=== PATIENT | female | born 1990 | race Caucasian/White ===

== ENCOUNTER 2022-07-10 07:02 | Day surgery (SDC) | payer SELFPAY ==
[2022-07-10] VITALS (14 sets, daily range): BP systolic 112–125; BP diastolic 42–84; PULSE 75–96; RESP 18–20; TEMP 36.6–36.9; O2SAT 97–100; BMI 24.5
[2022-07-10] MEDS: LACTATED RINGERS 1000 ML 1,000 ML 100 ML IV (07:30)
[2022-07-10 07:43] LABS: Ur HCG Qualitative* Negative (Negative)
[2022-07-10] MEDS: SODIUM CHLORIDE 0.9 % (FLUSH) 10 ML SYRINGE IVF (07:55)
[2022-07-10] MEDS: ETHYL CHLORIDE 1 APPLICATION 1 APPLIC TOPICAL (07:55)
[2022-07-10] MEDS: BUPIVACAINE 0.25% 30 ML INJECTION (09:07)
--- NOTE | 2022-07-10 09:12 | W.ANESCHARGE ---
Anesthesia Charges Start Date/Time Anesthesia Start Date: 07/10/22 Anesthesia Start Time: 08:29 Stop Date/Time Anesthesia Stop Date: 07/10/22 Anesthesia Stop Time: 10:03 Summary Emergency: No
--- NOTE | 2022-07-10 09:41 | PC.NURSE ---
CATHETER REMOVED AT END OF CASE PER
--- NOTE | 2022-07-10 09:52 | PC.NURSE ---
400CC SALINE IRRIGATION USED WITH SUCTION DOOR CORE ASSEMBLER
--- NOTE | 2022-07-10 09:57 | P.GYNPRC_ITS ---
Procedure Note Date Seen: 07/10/22 Procedure Details: PREOPERATIVE DIAGNOSIS: Undesired fertility POSTOPERATIVE DIAGNOSIS: Undesired fertility Left ovarian corpus luteum cyst Peritoneal lesions PROCEDURE: Laparoscopic bilateral salpingectomy, peritoneal biopsy, left ovarian cystectomy SURGEON: Caryl Joy MD [facility] ATTENDANT: MARGARITA Jasmine ANESTHESIA: General IV FLUIDS: 900 mL crystalloid URINE OUTPUT: 75 mL EBL: 5 mL FINDINGS: 1. Upon pelvic exam under anesthesia, his parents. Uterus was mobile and retroverted, of normal size and texture. 2. Upon laparoscopy, survey of the upper abdomen revealed a normal appearance to the inferior edge of the liver, gallbladder and stomach. Bowels were grossly normal appearance, as was the appendix. Survey of the pelvis revealed normal appearance to the retroverted uterus. Bilateral tubes were normal in appearance. The right ovary was normal in appearance. Left ovary exhibited a cyst that was approximately 3 cm in greatest dimension, consistent in appearance with corpus luteum cyst upon removal. The cul-de-sac exhibited multiple tiny clear vesicular lesions, with the largest at the proximal right uterosacral ligament. There was no pelvic scarring. COMPLICATIONS: None PROCEDURE IN DETAIL: Patient was taken to the operating with IV running. General anesthesia was administered. She was prepped and draped in the usual sterile fashion in the dorsal lithotomy position. Attention was turned to pelvic exam, with findings as noted above. Speculum was inserted. Cervix visualized. Single-tooth uterine manipulator was inserted through the cervix into the lower uterine segment, and affixed to the posterior cervical lip. Speculum was removed. Dumont catheter was inserted. Patient's legs were placed in neutral position. Attention was turned to patient's abdomen. The infraumbilical area was infiltrated with small amount of Marcaine. An infraumbilical incision was made with a scalpel and carried through to the underlying layer of fascia with a hemostat. The 5 mm Fios Kii trocar was assembled with laparoscope within, and insufflator attached. While tenting up the abdomen manually, the trocar was passed through the anterior abdominal wall into the peritoneal cavity. Trocar was removed. Pneumoperitoneum was achieved. Survey of abdomen and pelvis revealed the above-noted findings. Two additional port sites were created. The 1st was in the patient's left lower quadrant, just superior medial to the left ASIS. The 2nd was a hand's breath superior to and slightly medial to the 1st. Each was infiltrated with small amount of Marcaine prior to incision. A 5 mm incision was made at each site, making sure the large vessels were out of harm's way. A 5 mm Fios Kii port was inserted at each site, under direct visualization and without complication. The balloon on each of the 3 ports was inflated, holding each in place. The right fallopian tube was grasped at its fimbriated edge. It was divided from its vascular supply with the Thunderbeat cautery device, and divided from the mesosalpinx moving laterally for medially, and till the right cornua was reached. Tube was amputated at the right cornua and removed from the abdomen. It was sent to pathology for further analysis. This procedure was repeated on the patient's left side, and that tube was sent to pathology as well. The above described lesions in the posterior cul-de-sac were examined, and the largest cluster of tiny vesicles was excised sharply with scissors and sent to pathology. This was at the proximal end of the right uterosacral ligament. Hemostasis of the biopsy site was achieved with monopolar cautery. Finally, the left ovarian cyst was further examined, disrupting the overlying cortex in the process. The cyst bed then began to bleed. The cyst wall was removed with gentle traction. Hemostasis of the cyst bed was achieved with monopolar cautery. The balloon tip on each port site was deflated. All instruments were removed from the ports and insufflation was released. Ports were removed. The skin of each port site was closed with a subcuticular stitch of 4 0 Vicryl. Surgical glue was applied above this. The uterine manipulator was removed from the uterus and hemostasis was noted. Dumont catheter was removed. Patient tolerated procedure well and was taken to recovery area in stable condition.
--- NOTE | 2022-07-10 10:22 | W.ANESCHARGE ---
Anesthesia Charges Start Date/Time Anesthesia Start Date: 07/10/22 Anesthesia Start Time: 08:29 Stop Date/Time Anesthesia Stop Date: 07/10/22 Anesthesia Stop Time: 10:03 Summary Emergency: No
== END 2022-07-10 11:27 | disposition home or self-care (01) ==
PROVIDERS: PCP Family Medicine; Visit Provider Obstetrics & Gynecology
PROC: (CPT 58661; principal; 2022-07-10 08:30)
DX: Z30.2 Encounter for sterilization (principal); N83.12 Corpus luteum cyst of left ovary; N80.3 Endometriosis of pelvic peritoneum
CPT/HCPCS: 58661; 58662; 49321; 00840; 00851; 36415; 81025; 86850; 86900; 86901; 88302; 88305; J0330; J1100; J1885; J2250; J2405; J3010; J3490; J7120

== ENCOUNTER 2023-02-25 09:34 | Emergency (ER) | payer SELFPAY ==
[2023-02-25] VITALS (11 sets, daily range): BP systolic 128–147; BP diastolic 79–95; PULSE 82–115; RESP 16–18; TEMP 37.1; O2SAT 98–100; BMI 22.7
--- NOTE | 2023-02-25 10:05 | ED.CHESTPAIN ---
HPI - Chest Pain General Time Seen by Provider: 10:05 Date Seen: 02/25/23 Chief Complaint: Chest Pain Stated Complaint: Chest pain Time Seen by Provider: 02/25/23 10:04 Source: patient and RN notes reviewed Mode of arrival: ambulatory Limitations: no limitations History of Present Illness HPI narrative: This 32-year-old female is coming in with concerns elevated heart rate and chest pain. She endorses significant underlying anxiety, did complete partial outpatient treatment for her anxiety. She states that she had a full blood workup and normal thyroid function done in September as part of this program. 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 She did take her Cymbalta and her BuSpar this morning. She admits she had a panic attack. She was unable to fully recover with herself relaxation in cognitive behavioral approaches. She does not use benzodiazepines. She has used Vistaril in the past but with the fatigue she has an being mom, does not like this sedative affects. She admits that she just needs to know she is not having a heart attack and she will feel better. She states she suffers from chronic chest pain, states she carries her anxiety in her chest. The chest discomfort is not anything new for her. She has been having it significantly for the last few days. There has been strep in her house but she herself is not had any ill symptoms. She has not been sick with anything recently, no COVID. She has had a tubal ligation, does not use any hormonal contraceptives. She did feel some shortness of breath this morning in the context of the anxiety. Related Data Home Medications Medication Instructions Recorded Confirmed buspirone 10 mg tablet 20 mg PO BID 05/30/22 02/25/23 duloxetine 20 mg capsule,delayed 20 mg PO BID 02/25/23 02/25/23 release duloxetine 60 mg capsule,delayed 60 mg PO DAILY 02/25/23 02/25/23 release Previous Rx's Medication Instructions Recorded ibuprofen 600 mg tablet 600 mg PO Q6H PRN #30 tabs 07/10/22 oxycodone 5 mg tablet 5 mg PO Q4H PRN 4 OR GREATER ON 07/10/22 PAIN SCALE #20 tabs Allergies Allergy/AdvReac Type Severity Reaction Status Date / Time ragweed pollen Allergy Itchy Verified 07/10/22 07:22 throat Cat hair extract Allergy Severe Itchy Uncoded 07/10/22 07:22 throat Review of Systems Status of ROS Reports: 10 or more systems reviewed and unremarkable except as noted in History and below [facility] Medical History FLAKO I (cervical intraepithelial neoplasia I) ?N87.0 - Mild cervical dysplasia (ICD-10) Depression with anxiety ?F41.8 - Other specified anxiety disorders (ICD-10) Depression with anxiety ?F41.8 - Other specified anxiety disorders (ICD-10) Dysmenorrhea, unspecified ?N94.6 - Dysmenorrhea, unspecified (ICD-10) Generalized anxiety disorder ?F41.1 - Generalized anxiety disorder (ICD-10) History of gestational hypertension ?Z87.59 - Personal history of other complications of , childbirth and the puerperium (ICD-10) History of seizure disorder ?Z86.69 - Personal history of other diseases of the nervous system and sense organs (ICD-10) Major depressive disorder, recurrent, mild ?F33.0 - Major depressive disorder, recurrent, mild (ICD-10) Migraine with aura ?G43.109 - Migraine with aura, not intractable, without status migrainosus (ICD-10) Seizure ?R56.9 - Unspecified convulsions (ICD-10) Tobacco use disorder ?F17.200 - Nicotine dependence, unspecified, uncomplicated (ICD-10) Surgical History History of colposcopy ?Z98.890 - Other specified postprocedural states (ICD-10) Family History Father Stroke High blood pressure Osteoporosis Drug dependence High cholesterol Mother High cholesterol High blood pressure Social History Narrative: She lives in [place] [facility] with her . Between the 2 of them, they have 5 children, 1 together. She has 2 children from a previous relationship, as does he. She does not smoke, drink alcohol, or use recreational drugs. She works in [employer], where she does a lot of lifting. Smoking Status: Former smoker What tobacco products do you use: cigarettes Smoking quit date/years: <= 15 years ago Do you use any of these nicotine containing products: None Non-prescribed substance use: denies use Caffeine: Yes Are you using contraception or practicing any form of control: Yes Exam Const Vital Signs, click to edit/add: Vital Signs - 24 hr 02/25/23 09:40 Temperature 98.8 F Pulse Rate [Right Pulse Oximeter] 115 H Respiratory Rate 18 Blood Pressure [Right Upper Arm] 147/95 H Pulse Oximetry 100 Oxygen Delivery Method Room Air Documenting provider has reviewed patient's vital signs: yes Common normals: no apparent distress, average body habitus, oriented x3, no limitations, healthy appearing and alert General appearance: cooperative, comfortable, well kempt, well developed and anxious HENKY Common normals: normocephalic, head/scalp atraumatic and hearing grossly normal bilaterally Head and scalp: normocephalic and atraumatic Eye Common normals: PERRL, EOMs intact bilaterally, conjunctivae normal and no scleral icterus Conjunctiva: conjunctiva(e) normal Pupil: PERRL Neck & C-Spine Common normals: full ROM, no lymphadenopathy, supple, no meningeal signs, no JVD and thyroid normal Thyroid: thyroid normal Resp Common normals: normal respiratory effort, no retractions, no use of accessory muscles, clear to auscultation bilaterally and percussion normal Auscultation: clear to auscultation bilaterally Percussion: percussion normal Cardio Common normals: no JVD, regular rhythm, S1 normal heart sound, S2 normal heart sound, no gallops, no clicks, no murmurs and no rub Rate: tachycardic Rhythm: regular rhythm Heart sounds: S1 normal and S2 normal GI Common normals: Normal to inspection, nondistended, normoactive bowel sounds present, soft to palpation, non-tender, no hepatosplenomegaly and no masses Palpation: soft and no hepatosplenomegaly Extremity Other: No lower extremity edema or calf tenderness. Neuro Common normals: oriented x3 and gait normal Sensorium/orientation: alert Meningeal signs: no meningeal signs Speech: speech normal Psych Appearance: well kempt Course Course Hospital Course: She is mildly tachycardic with a sinus tachycardia which certainly could be anxiety. Will consider venous thromboembolic disorders, cardiac disorders. I do not feel her thyroid needs to be re-evaluated as it was recently done so. Will check basic electrolytes, make sure she is not anemic, do a D-dimer as well as a troponin. She will be monitored on pulse oximetry and cardiac monitoring while here. She did drive herself, thus certainly would not give her any Vistaril as it can be sedating. She and I both agree against use of benzodiazepines for her. Reevaluation(s) Reevaluation #1: Reviewed with patient her troponin and EKG are normal, other labs are normal including a D-dimer. She has had her chest symptoms for days. She is reassured. She states she has psychiatry and is well hooked in. Will discharge her for further outpatient follow-up for anxiety. Time: 11:19 Vital Signs Vital signs: Initial Vital Signs Temperature 98.8 F 02/25/23 09:40 Temperature Source Temporal Artery Scan 02/25/23 09:40 Pulse Rate 115 H 02/25/23 09:40 Respiratory Rate 18 02/25/23 09:40 Blood Pressure 147/95 H 02/25/23 09:40 Blood Pressure Mean 112 02/25/23 09:40 Blood Pressure Position Sitting 02/25/23 09:40 Pulse Oximetry 100 02/25/23 09:40 Oxygen Delivery Method Room Air 02/25/23 09:40 Vital Signs Temperature 98.8 F 02/25/23 09:40 Pulse Rate 115 H 02/25/23 09:40 Respiratory Rate 18 02/25/23 09:40 Blood Pressure 147/95 H 02/25/23 09:40 Pulse Oximetry 100 02/25/23 09:40 Oxygen Delivery Method Room Air 02/25/23 09:40 Temperature 98.8 F 02/25/23 09:40 Pulse Rate 115 H 02/25/23 09:40 Respiratory Rate 18 02/25/23 09:40 Blood Pressure 147/95 H 02/25/23 09:40 Pulse Oximetry 100 02/25/23 09:40 Oxygen Delivery Method Room Air 02/25/23 09:40 MDM - Chest Pain Lab Data Labs: Lab Results 02/25/23 02/25/23 Range/Units 10:13 10:22 WBC 4.61 (4.50-11.00) K/uL RBC 4.11 (4.00-5.20) m/uL Hgb 12.7 (12.0-16.0) gm/dL Hct 38.9 (33.0-51.0) % MCV 95 (80-100) fL MCH 31 (26-34) pg MCHC 33 (32-36) gm/dL RDW Coeff of Anastasiia 13.0 (11.5-15.5) % Plt Count 194 (140-440) K/uL Neut % (Auto) 75.9 H (42.0-72.0) % Lymph % (Auto) 16.1 L (20-44) % [place] % (Auto) 7.4 (0.0-11.0) % Eos % (Auto) 0.4 (0.0-7.0) % Baso % (Auto) 0.2 (0.0-3.0) % Neut # (Auto) 3.50 (1.7-7.0) K/uL Lymph # (Auto) 0.70 L (0.90-2.90) K/uL [place] # (Auto) 0.30 (0.00-0.90) K/UL Eos # (Auto) 0.02 (0.00-0.50) K/uL Baso # (Auto) 0.01 (0.00-0.30) K/uL D-Dimer Quant (PE/DVT) 0.30 (0.00-0.50) ug/ml Sodium 135 (135-149) mmol/L Potassium 4.3 (3.6-5.1) mmol/L Chloride 104 (96-114) mmol/L Carbon Dioxide 24 (20-32) mmol/L BUN 14 (5-24) mg/dL Creatinine 0.5 (0.5-1.5) mg/dL Estimated Creat Clear 158.53 Estimated GFR 129 ml/min Glucose 144 H (60-115) mg/dL Calcium 8.7 (8.4-10.6) mg/dL POC Troponin I 0.00 L (0.01-0.04) ng/ml ECG Data Attestation: I personally reviewed and interpreted this ECG as follows: (Sinus tachycardia, 109 beats per minute. No ischemic change, QT corrected 441 milliseconds.) ECG interpretation date: 02/25/23 ECG interpretation time: 10:06 Prior ECG tracings: not available for review Critical Care Time Critical Care Time Critical Care Time: No Discharge Plan Discharge Clinical Impression: Anxiety, Chest pain Patient Disposition: Home, Self-Care Condition: Stable Instructions: Chest Pain (ED), Anxiety (ED) Additional Instructions: Continue to follow-up with Psychiatry, counseling that you have. Certainly can try some Tylenol or ibuprofen for discomfort. Continue to work on self relaxation techniques. If at any point you feel you have worsening chest symptoms, there is any association with difficulty breathing or shortness of breath, it is always recommended that you seek re-evaluation. Activity Level: Activity as Tolerated Discharge Diet: Regular Prescriptions: No Action buspirone 10 mg tablet 20 mg PO BID oxycodone 5 mg Tablet 5 mg PO Q4H PRN (Reason: 4 OR GREATER ON PAIN SCALE) Qty: 20 0RF ibuprofen 600 mg tablet 600 mg PO Q6H PRNQty: 30 0RF duloxetine 20 mg capsule,delayed release(DR/EC) 20 mg PO BID duloxetine 60 mg capsule,delayed release(DR/EC) 60 mg PO DAILY Follow Up/Referrals: Myriam Linares MD [Primary Care Provider] - Stand Alone Forms: [email or web address] Info Instructions
[2023-02-25 10:36] LABS: Basophils Absolute Auto 0.01 K/uL (0.00-0.30); Basophils Percent Auto 0.2 % (0.0-3.0); Eosinophils Absolute Auto 0.02 K/uL (0.00-0.50); Eosinophils Percent Auto 0.4 % (0.0-7.0); Hematocrit 38.9 % (33.0-51.0); Hemoglobin* 12.7 gm/dL (12.0-16.0); Lymphocytes Percent Auto 16.1 % (20-44); Mean Corpuscular HGB Conc 33 gm/dL (32-36); Mean Corpuscular Hemoglobin 31 pg (26-34); Mean Corpuscular Volume 95 fL (80-100); Monocytes Percent Auto 7.4 % (0.0-11.0); Neutrophils Percent Auto 75.9 % (42.0-72.0); Platelet Count* 194 K/uL (140-440); Red Blood Count 4.11 m/uL (4.00-5.20); White Blood Count* 4.61 K/uL (4.50-11.00)
[2023-02-25 10:40] LABS: Slide Review Reflex No
[2023-02-25 10:49] LABS: Chloride* 104 mmol/L (96-114)
[2023-02-25 10:50] LABS: Potassium* 4.3 mmol/L (3.6-5.1); Sodium* 135 mmol/L (135-149)
[2023-02-25 10:52] LABS: Creatinine* 0.5 mg/dL (0.5-1.5); Est. Creatinine Clearance* 158.53; Estimated Glomerular Filt Rate 129 ml/min
[2023-02-25 10:53] LABS: Blood Urea Nitrogen* 14 mg/dL (5-24); Calcium* 8.7 mg/dL (8.4-10.6); Carbon Dioxide* 24 mmol/L (20-32); Glucose* 144 mg/dL (60-115)
== END 2023-02-25 11:33 | disposition home or self-care (01) ==
PROVIDERS: Emergency Provider Family Medicine; PCP Family Medicine
DX: R07.9 Chest pain, unspecified (principal); F41.9 Anxiety disorder, unspecified
CPT/HCPCS: 36415; 80048; 84484; 85025; 85379; 93005; 94761; 99284

== ENCOUNTER 2023-08-26 13:37 | Emergency (ER) | payer BC, SELFPAY ==
[2023-08-26 13:49] VITALS: BP 145/104; PULSE 110; RESP 20; TEMP 36.7; O2SAT 99; BMI 22.7
--- NOTE | 2023-08-26 14:33 | ED_ITS ---
HPI - General Adult General Chief complaint: Chest Pain Stated complaint: Chest pain, rapid heart rate Time Seen by Provider: 08/26/23 13:51 History of Present Illness HPI narrative: This patient called the triage nurse line and was encouraged to come in here. She states that she has history of anxiety and occasionally has some associated chest discomfort. She was just wondering if it was okay to take her propranolol under these circumstances. She takes a 10 mg tablet as needed which addresses blood pressure and anxiety symptoms for her. She states that she has had chest discomfort and heaviness related to anxiety in the past and her workups have been negative. She does attribute this to anxiety and says today she is feeling better now and that these symptoms were typical for her. She does arrive with tachycardia and heart rate around 110 beats per minute but otherwise has reassuring vital signs. At the time of my initial visit her heart rate was in normal range at around 80 beats per minute. Related Data Home Medications Medication Instructions Recorded Confirmed escitalopram oxalate 20 mg tablet 20 mg PO DAILY 08/26/23 08/26/23 lisinopril 10 mg tablet 10 mg PO DAILY 08/26/23 08/26/23 propranolol 10 mg tablet 10 mg PO 3XD 08/26/23 08/26/23 Previous Rx's Medication Instructions Recorded ibuprofen 600 mg tablet 600 mg PO Q6H PRN #30 tabs 07/10/22 Allergies Allergy/AdvReac Type Severity Reaction Status Date / Time ragweed pollen Allergy Itchy Verified 08/26/23 13:53 throat Cat hair extract Allergy Severe Itchy Uncoded 07/10/22 07:22 throat Review of Systems Status of ROS: Reports: 10 or more systems reviewed and unremarkable except as noted in History and below Narrative: Constitutional: No fevers, no weight gain or loss. Eyes: No discharge. No vision changes. HENT: No congestion, no sore throat, no ear pain. Cardiovascular: No chest pain, no palpitations. Respiratory: No shortness of breath, no wheezes, no cough. Gastrointestinal: No abdominal pain, no vomiting, no diarrhea. Genitourinary: No dysuria, no hematuria. Musculoskeletal: Normal range of motion. Skin: No rashes, no pruritis. Neurological: No dizziness, weakness, sensory change, speech change. Endo/Heme/Allergies: No bruising or bleeding. No polydipsia. Pysch: no suicidality, no insomnia. She reports anxiety symptoms. All other systems reviewed and are negative. [facility] Medical History FLAKO I (cervical intraepithelial neoplasia I) ?N87.0 - Mild cervical dysplasia (ICD-10) Depression with anxiety ?F41.8 - Other specified anxiety disorders (ICD-10) Depression with anxiety ?F41.8 - Other specified anxiety disorders (ICD-10) Dysmenorrhea, unspecified ?N94.6 - Dysmenorrhea, unspecified (ICD-10) Generalized anxiety disorder ?F41.1 - Generalized anxiety disorder (ICD-10) History of gestational hypertension ?Z87.59 - Personal history of other complications of , childbirth and the puerperium (ICD-10) History of seizure disorder ?Z86.69 - Personal history of other diseases of the nervous system and sense organs (ICD-10) Major depressive disorder, recurrent, mild ?F33.0 - Major depressive disorder, recurrent, mild (ICD-10) Migraine with aura ?G43.109 - Migraine with aura, not intractable, without status migrainosus (ICD-10) Seizure ?R56.9 - Unspecified convulsions (ICD-10) Tobacco use disorder ?F17.200 - Nicotine dependence, unspecified, uncomplicated (ICD-10) Surgical History History of colposcopy ?Z98.890 - Other specified postprocedural states (ICD-10) Family History Father Stroke High blood pressure Osteoporosis Drug dependence High cholesterol Mother High cholesterol High blood pressure Social History Narrative: She lives in [facility] with her . Between the 2 of them, they have 5 children, 1 together. She has 2 children from a previous relationship, as does he. She does not smoke, drink alcohol, or use recreational drugs. She works in [employer], where she does a lot of lifting. Smoking Status: Former smoker What tobacco products do you use: cigarettes S moking quit date/years: <= 15 years ago Do you use any of these nicotine containing products: None How often do you have a drink containing alcohol: never How often do you have six or more drinks on one occasion: Never AUDIT-C Alcohol total score: 0 Non-prescribed substance use: denies use Caffeine: Yes Are you using contraception or practicing any form of control: Yes service: No Exam Narrative: Exam Narrative: Constitutional: Well-developed, well-nourished, no acute distress. HEENT: Normocephalic, atraumatic. Neck: Normal range of motion. Nontender. Supple. Heart: Regular. No murmurs. Normal rate. Intact distal pulses. Lungs: Clear to auscultation. No chest discomfort. No wheezes, rhonchi, or rales. Abdomen: Normal bowel sounds. Nontender. No rebound tenderness. Genitalia: Deferred. Back: No midline tenderness. Normal range of motion. Extremities: Normal range of motion. No injury. Skin: Intact. No rash. Warm. No erythema or pallor. Neurologic: No altered sensation. No weakness. Alert and oriented. Psychiatric: No suicidality. Nursing notes and vitals signs are reviewed. Const: Vital Signs, click to edit/add: Vital Signs - 24 hr 08/26/23 13:49 Temperature 98.0 F Pulse Rate [Right Pulse Oximeter] 110 H Respiratory Rate 20 Blood Pressure [Ri ght Upper Arm] 145/104 H Pulse Oximetry 99 Oxygen Delivery Me thod Room Air Course Vital Signs Vital signs: Initial Vital Signs Temperature 98.0 F 08/26/23 13:49 Temperature Source Temporal Artery Scan 08/26/23 13:49 Pulse Rate 110 H 08/26/23 13:49 Respiratory Rate 20 08/26/23 13:49 Blood Pressure 145/104 H 08/26/23 13:49 Blood Pressure Mean 117 H 08/26/23 13:49 Blood Pressure Position Sitting 08/26/23 13:49 Pulse Oximetry 99 08/26/23 13:49 Oxygen Delivery Method Room Air 08/26/23 13:49 Vital Signs Temperature 98.0 F 08/26/23 13:49 Pulse Rate 110 H 08/26/23 13:49 Respiratory Rate 20 08/26/23 13:49 Blood Pressure 145/104 H 08/26/23 13:49 Pulse Oximetry 99 08/26/23 13:49 Oxygen Delivery Method Room Air 08/26/23 13:49 Temperature 98.0 F 08/26/23 13:49 Pulse Rate 110 H 08/26/23 13:49 Respiratory Rate 20 08/26/23 13:49 Blood Pressure 145/104 H 08/26/23 13:49 Pulse Oximetry 99 08/26/23 13:49 Oxygen Delivery Method Room Air 08/26/23 13:49 Medical Decision Making MDM Narrative Medical decision making narrative: This patient presents with symptoms as described above and states that she would not have come into the emergency room except that she was encouraged to do so by the phone nurse. She is simply wondering if it is okay to take propranolol. She does not have any significant cardiac risk factors. She does report some elevated blood pressure at times but there are other times when she feels a bit lightheaded and her blood pressure is measuring somewhat low. EKG today shows normal sinus rhythm without any ST or T-wave abnormalities. I did discuss lab and imaging options which the patient declined in a process of shared decision making. I stated that it is okay to take the low dose of propranolol that she has prescribed as needed and directed. I advised her to follow-up with her primary physician to review this plan and recommended also that she record blood pressures as she may not need blood pressure medicine. The patient states that she does have a follow-up appointment with her primary physician in about a week. ECG Data Attestation: I personally reviewed and interpreted this ECG as follows: Interpretation: Normal sinus rhythm. Rate is 98 beats per minute. There are no ST or T-wave abnormalities. Discharge Plan Discharge Clinical Impression: Anxiety, Atypical chest pain Patient Disposition: Home, Self-Care Condition: Stable Additional Instructions: Continue current plans. Follow up with MD as scheduled or return if worsening. Prescriptions: No Action ibuprofen 600 mg tablet 600 mg PO Q6H PRNQty: 30 0RF propranolol 10 mg tablet 10 mg PO 3XD lisinopril 10 mg tablet 10 mg PO DAILY escitalopram oxalate 20 mg tablet 20 mg PO DAILY Follow Up/Referrals: Myriam Linares MD [Primary Care Provider] - Stand Alone Forms: [employer] Info Instructions
[2023-08-26 14:50] VITALS: PULSE 87
== END 2023-08-26 14:51 | disposition home or self-care (01) ==
LOC: ED 14:43
PROVIDERS: Emergency Provider Emergency Medicine Emergency Medical Services; PCP Family Medicine
DX: R07.9 Chest pain, unspecified (principal); F41.9 Anxiety disorder, unspecified
CPT/HCPCS: 99283; 99284

== ENCOUNTER 2024-09-30 16:39 | Emergency (ER) | payer BC, SELFPAY ==
[2024-09-30 16:54] VITALS: BP 154/106; PULSE 93; RESP 18; TEMP 36.8; O2SAT 99; BMI 31.0
--- NOTE | 2024-09-30 17:21 | ED.GENADULT ---
HPI - General Adult General Time Seen by Provider: 17:21 Date Seen: 09/30/24 Chief complaint: Chest Pain Stated complaint: chest tightness/pain, heart palpitations Time Seen by Provider: 09/30/24 17:00 Source: patient and RN notes reviewed Mode of arrival: ambulatory Limitations: no limitations History of Present Illness HPI narrative: This 33-year-old female is coming in at request of her clinic doctor. She has underlying hypertension and anxiety, history of preeclampsia 3 years ago. She becomes tearful when I come in and starts talking about it. She apologizes for being here, I do reassure her that I am perfectly happy to see her and help her. She states that she really almost always feels a little ?chest E?. She also can feel palpitations. She dropped her daughter off at school this morning, just did not really feel right when she came home, started to check her blood pressure and was elevated. She was wondering if she needed to go up on her lisinopril. She has felt chest discomfort and discomfort in her throat area but no difficulty or pain with swallowing all day, at least 8 hours. When she contacted her doctor about the elevated blood pressure and wondering if she should go up on her lisinopril, her doctor recommended that she come in to the ER to be evaluated. She states this made her symptoms feel worse. She does not even like to track her blood pressure as she gets anxiety from that. She was in recently, blood pressure was elevated. She is not had any cough or cold symptoms, no fevers or chills. She will feel like her stomach gets a little uncomfortable or nauseated when she gets symptoms like this but she has really had no reflux or heartburn symptoms. There has been no difficulty with swallowing or drinking, does not increase her pain. She has had a tubal ligation with the 3 years ago, is scheduled to have a hysterectomy upcoming in 2 weeks and is worried that something will stop this from happening. She has her propranolol in hand, states she has not tried it but does use it for anxiety. Related Data Home Medications ?Medication ?Instructions ?Recorded ?Confirmed escitalopram oxalate 20 mg tablet 20 mg PO DAILY 08/26/23 09/30/24 lisinopril 10 mg tablet 10 mg PO DAILY 08/26/23 09/30/24 propranolol 10 mg tablet 10 mg PO 3XD 08/26/23 09/30/24 Previous Rx's ?Medication ?Instructions ?Recorded ibuprofen 600 mg tablet 600 mg PO Q6H PRN #30 tabs 07/10/22 Allergies Allergy/AdvReac Type Severity Reaction Status Date / Time ragweed pollen Allergy Itchy Verified 08/26/23 13:53 throat Cat hair extract Allergy Severe Itchy Uncoded 07/10/22 07:22 throat Review of Systems Status of ROS: Reports: 6 or more systems reviewed and unremarkable except as noted in History and below [facility] Medical History FLAKO I (cervical intraepithelial neoplasia I) ?N87.0 - Mild cervical dysplasia (ICD-10) Generalized anxiety disorder ?F41.1 - Generalized anxiety disorder (ICD-10) Seizure ?R56.9 - Unspecified convulsions (ICD-10) Tobacco use disorder ?F17.200 - Nicotine dependence, unspecified, uncomplicated (ICD-10) Depression with anxiety ?F41.8 - Other specified anxiety disorders (ICD-10) Major depressive disorder, recurrent, mild ?F33.0 - Major depressive disorder, recurrent, mild (ICD-10) Dysmenorrhea, unspecified ?N94.6 - Dysmenorrhea, unspecified (ICD-10) History of gestational hypertension ?Z87.59 - Personal history of other complications of , childbirth and the puerperium (ICD-10) Depression with anxiety ?F41.8 - Other specified anxiety disorders (ICD-10) History of seizure disorder ?Z86.69 - Personal history of other diseases of the nervous system and sense organs (ICD-10) Migraine with aura ?G43.109 - Migraine with aura, not intractable, without status migrainosus (ICD-10) Surgical History History of colposcopy ?Z98.890 - Other specified postprocedural states (ICD-10) Family History Father Stroke High blood pressure Osteoporosis Drug dependence High cholesterol Mother High cholesterol High blood pressure Social History Narrative: She lives in done this with her . Between the 2 of them, they have 5 children, 1 together. She has 2 children from a previous relationship, as does he. She does not smoke, drink alcohol, or use recreational drugs. She works in [employer], where she does a lot of lifting. Smoking Status: Former smoker What tobacco products do you use: cigarettes Smoking quit date/years: <= 15 years ago Do you use any of these nicotine containing products: None How often do you have a drink containing alcohol: never How often do you have six or more drinks on one occasion: Never AUDIT-C Alcohol total score: 0 Non-prescribed substance use: denies use Caffeine: Yes Are you using contraception or practicing any form of control: Yes service: No Exam Const: Vital Signs, click to edit/add: Vital Signs - 24 hr 09/30/24 16:54 09/30/24 17:32 09/30/24 17:59 Temperature 98.2 F Pulse Rate 80 Pulse Rate [Right Pulse Oximeter] 93 Respiratory Rate 18 Blood Pressure 133/83 Blood Pressure [Ri ght Upper Arm] 154/106 H Pulse Oximetry 99 98 98 Oxygen Delivery Me thod Room Air Very pleasant 33-year-old female that is tearful at times. Good eye contact. Seems anxious. Speech is normal. Symmetrical facial function, conjugate gaze with clear sclera. Neck supple, no thyromegaly masses or nodules, no neck masses. Lungs are clear, good air entry, no wheezing or crackles. CV regular rate and rhythm, no murmur, normal S1-S2, no S3-S4. Abdomen is soft, nontender, nondistended, no organomegaly. She has no lower extremity edema, no calf tenderness, ambulatory into the ED of her own accord. Documenting provider has reviewed patient's vital signs: yes Course Course ED Course: Will have nursing staff obtain EKG, place her on pulse oximetry. Will get baseline labs including a D-dimer. This is a patient with preeclampsia with hypertension from that. Her blood pressure is mildly elevated, could be contributed to by anxiety. She has had her chest symptoms all day long from this morning, probably close to 8 hours. If her troponin is normal in EKG reassuring, it is unlikely that this is an acute coronary event given the length of her symptoms today. Will get portable chest x-ray. If D-dimer is elevated can proceed with chest CT PE protocol. Reevaluation(s) Time of Reevaluation #1: 18:37 Reevaluation #1: Have reviewed normal labs with patient, no evidence of elevated troponin or D-dimer. Her chest x-ray showing no acute pathology. Her recheck of her blood pressure is down to 133/83. She is feeling less anxious. We will discharge to home. Vital Signs Vital signs: Initial Vital Signs Temperature 98.2 F 09/30/24 16:54 Temperature Source Temporal Artery Scan 09/30/24 16:54 Pulse Rate 93 09/30/24 16:54 Respiratory Rate 18 09/30/24 16:54 Blood Pressure 154/106 H 09/30/24 16:54 Blood Pressure Mean 122 H 09/30/24 16:54 Blood Pressure Position Sitting 09/30/24 16:54 Pulse Oximetry 99 09/30/24 16:54 Oxygen Delivery Method Room Air 09/30/24 16:54 Vital Signs Temperature 98.2 F 09/30/24 16:54 Pulse Rate 93 09/30/24 16:54 Respiratory Rate 18 09/30/24 16:54 Blood Pressure 154/106 H 09/30/24 16:54 Pulse Oximetry 99 09/30/24 16:54 Oxygen Delivery Method Room Air 09/30/24 16:54 Temperature 98.2 F 09/30/24 16:54 Pulse Rate 80 09/30/24 17:59 Respiratory Rate 18 09/30/24 16:54 Blood Pressure 133/83 09/30/24 17:59 Pulse Oximetry 98 09/30/24 17:59 Oxygen Delivery Method Room Air 09/30/24 16:54 Medical Decision Making Lab Data Lab results reviewed: Yes I reviewed the patient's lab results Labs: Lab Results 09/30/24 Range/Units 17:51 WBC 7.31 (4.50-11.00) K/uL RBC 4.17 (4.00-5.20) m/uL Hgb 12.9 (12.0-16.0) gm/dL Hct 38.7 (33.0-51.0) % MCV 93 (80-100) fL MCH 31 (26-34) pg MCHC 33 (32-36) gm/dL RDW Coeff of Anastasiia 13.0 (11.5-15.5) % Plt Count 237 (140-440) K/uL Neut % (Auto) 70.9 (42.0-72.0) % Lymph % (Auto) 21.2 (20-44) % [place] % (Auto) 7.4 (0.0-11.0) % Eos % (Auto) 0.4 (0.0-7.0) % Baso % (Auto) 0.1 (0.0-3.0) % Neut # (Auto) 5.18 (1.7-7.0) K/uL Lymph # (Auto) 1.55 (0.90-2.90) K/uL [place] # (Auto) 0.50 (0.00-0.90) K/UL Eos # (Auto) 0.03 (0.00-0.50) K/uL Baso # (Auto) 0.01 (0.00-0.30) K/uL Abs Immat Gran (auto) 0.00 (0.00-0.30) K/uL Imm/Tot Granulo (auto) 0.0 % D-Dimer Quant (PE/DVT) 0.37 (0.00-0.50) ug/ml Sodium 133 L (135-149) mmol/L Potassium 3.6 (3.6-5.1) mmol/L Chloride 101 (96-114) mmol/L Carbon Dioxide 22 (20-32) mmol/L Anion Gap 10 (7-15) mEq/L BUN 16 (5-24) mg/dL Creatinine 0.5 (0.5-1.5) mg/dL Estimated Creat Clear 151.22 Estimated GFR 128 ml/min Glucose 87 (60-115) mg/dL Calcium 9.7 (8.4-10.6) mg/dL Total Bilirubin 0.3 (0.1-1.5) mg/dL AST 20 (12-35) U/L ALT 12 (4-35) U/L Alkaline Phosphatase 69 (40-150) U/L Troponin I < 0.01 L (0.01-0.04) ng/mL NT-Pro-B Natriuret Pep < 20 pg/mL Total Protein 7.2 (6.0-8.3) g/dL Albumin 4.7 (3.3-5.0) g/dL Imaging Data Chest x-ray: Attestation: I have reviewed the pertinent imaging results. Radiologist's impression: Patient: GRACE AGUILAR Facility:?[facility] Patient ID:?[id number] Site Patient ID:?[id number]. Site :?[id number] Study:?XRay-Chest 1V PORTABLE-09/30/2024 6:06:49 PM Ordering Physician:Maria E Hicks Final Report: Indication: Chest heaviness. Technique: Chest 1 view. Comparison: Chest radiographs dated 08/20/2021. Findings/Impression: Cardiovascular and mediastinum: Heart size and vasculature are normal in caliber and appearance. Lungs and pleural space: Lungs are clear. No sign of infiltrate or mass. No sign of pleural effusion. No pneumothorax. Bones and soft tissues: No acute findings. Dictated by Filiberto Palmer MD @ 09/30/2024 6:21:55 PM (Electronic Signature) ECG Data Attestation: I personally reviewed and interpreted this ECG as follows: (Normal sinus rhythm, 69 beats per minute. No active ischemia or infarct noted.) Prior ECG tracings: available for review Discharge Plan Discharge Clinical Impression: Chest discomfort, Elevated blood pressure reading with diagnosis of hypertension, Anxiety Patient Disposition: Home, Self-Care Condition: Stable Instructions: Heart Healthy Diet (ED), Hypertension (ED), Noncardiac Chest Pain (ED), Anxiety (ED) Additional Instructions: Contact your primary care provider next week and see if you can get in for follow-up. I would favor monitoring your blood pressure given that the follow-up reading here is looking much better. You may need increased dosage of lisinopril but I cannot decipher that off this solitary visit. Your primary care provider can help with long-term management of your hypertension. You certainly can try the propranolol as prescribed for your anxiety. I have included a handout on heart healthy diet, minimizing sodium, exercising can both help reduce blood pressure as well. Do recommend lifestyle management for hypertension for you. Activity Level: Activity as Tolerated Discharge Diet: Heart Healthy (2 gm sodium, low fat) Prescriptions: No Action ibuprofen 600 mg tablet 600 mg PO Q6H PRNQty: 30 0RF propranolol 10 mg tablet 10 mg PO 3XD lisinopril 10 mg tablet 10 mg PO DAILY escitalopram oxalate 20 mg tablet 20 mg PO DAILY Follow Up/Referrals: Myriam Linares MD [Primary Care Provider] - Stand Alone Forms: [employer] Info Instructions
[2024-09-30 17:32] VITALS: O2SAT 98
--- NOTE | 2024-09-30 17:32 | CRLHL7_ITS ---
For Patients: As a result of the Cures Act, medical imaging exams and procedure reports are released immediately into your electronic medical record. You may view this report before your referring provider. If you have questions, please contact your health care provider. Indication: Chest heaviness. Technique: Chest 1 view. Comparison: Chest radiographs dated 08/20/2021. Findings/Impression: Cardiovascular and mediastinum: Heart size and vasculature are normal in caliber and appearance. Lungs and pleural space: Lungs are clear. No sign of infiltrate or mass. No sign of pleural effusion. No pneumothorax. Bones and soft tissues: No acute findings. Dictated by Filiberto Palmer MD @ 09/30/2024 6:21:55 PM (Electronically Signed)
[2024-09-30 17:59] VITALS: BP 133/83; PULSE 80; O2SAT 98
[2024-09-30 18:02] LABS: Basophils Absolute Auto 0.01 K/uL (0.00-0.30); Basophils Percent Auto 0.1 % (0.0-3.0); Eosinophils Absolute Auto 0.03 K/uL (0.00-0.50); Eosinophils Percent Auto 0.4 % (0.0-7.0); Hematocrit 38.7 % (33.0-51.0); Hemoglobin* 12.9 gm/dL (12.0-16.0); Lymphocytes Absolute Auto 1.55 K/uL (0.90-2.90); Lymphocytes Percent Auto 21.2 % (20-44); Mean Corpuscular HGB Conc 33 gm/dL (32-36); Mean Corpuscular Hemoglobin 31 pg (26-34); Mean Corpuscular Volume 93 fL (80-100); Monocytes Percent Auto 7.4 % (0.0-11.0); Neutrophils Absolute Auto 5.18 K/uL (1.7-7.0); Neutrophils Percent Auto 70.9 % (42.0-72.0); Platelet Count* 237 K/uL (140-440); Red Blood Count 4.17 m/uL (4.00-5.20); White Blood Count* 7.31 K/uL (4.50-11.00)
[2024-09-30 18:09] LABS: Slide Review Reflex No
[2024-09-30 18:18] LABS: Albumin* 4.7 g/dL (3.3-5.0); Chloride* 101 mmol/L (96-114); Potassium* 3.6 mmol/L (3.6-5.1); Sodium* 133 mmol/L (135-149)
[2024-09-30 18:20] LABS: Creatinine* 0.5 mg/dL (0.5-1.5); Est. Creatinine Clearance* 151.22; Estimated Glomerular Filt Rate 128 ml/min
[2024-09-30 18:21] LABS: Alanine Aminotransferase* 12 U/L (4-35); Alkaline Phosphatase* 69 U/L (40-150); Anion Gap 10 mEq/L (7-15); Aspartate Amino Transferase* 20 U/L (12-35); Bilirubin Total* 0.3 mg/dL (0.1-1.5); Blood Urea Nitrogen* 16 mg/dL (5-24); Calcium* 9.7 mg/dL (8.4-10.6); Carbon Dioxide* 22 mmol/L (20-32); Glucose* 87 mg/dL (60-115); Total Protein* 7.2 g/dL (6.0-8.3)
[2024-09-30 18:22] LABS: D Dimer Quantitative* 0.37 ug/ml (0.00-0.50)
[2024-09-30 18:32] LABS: NT Pro B Type NatriureticPept* < 20 pg/mL
[2024-09-30 18:34] LABS: Troponin I* < 0.01 ng/mL (0.01-0.04)
== END 2024-09-30 18:56 | disposition home or self-care (01) ==
PROVIDERS: Emergency Provider Family Medicine; PCP Family Medicine
DX: R07.9 Chest pain, unspecified (principal); I10 Essential (primary) hypertension; F41.9 Anxiety disorder, unspecified
CPT/HCPCS: 36415; 71045; 80053; 83880; 84484; 85025; 85379; 93005; 94761; 99284

== ENCOUNTER 2024-11-06 10:08 | Emergency (ER) | payer BC, SELFPAY ==
[2024-11-06 10:10] VITALS: BP 152/82; PULSE 133; RESP 16; TEMP 36.4; O2SAT 98; BMI 31.0
--- NOTE | 2024-11-06 10:36 | ED.GENADULT ---
HPI - General Adult General Date Seen: 11/06/24 Chief complaint: Post Op Complication Stated complaint: Bleeding after hysterectomy Time Seen by Provider: 11/06/24 10:10 History of Present Illness HPI narrative: 34-year-old female with a past medical history preeclampsia, hypertension, anxiety,, tobacco use, dysmenorrhea, seizures, migraine headaches. She is 3 weeks status post laparoscopic total hysterectomy (removal of uterus and cervix, but not ovaries. Surgery was done at [facility], by dR Pierce. She had been recovering well postoperatively. She has had almost no vaginal bleeding. Some abdominal discomfort that feels like a bruise but nothing too severe. No vaginal discharge. No fever chills. Her incisions are dry and well opposed. She has been working hard to stick to her activity restrictions (nothing per vagina, no lifting more than 15 lb). Yesterday her 3-year-old fell off the couch that she did have to catch her daughter (who weighs more than 15 lb) but no other known straining or deviation from her postoperative plan. This morning when she woke up and went to the bathroom she had a little bit of red blood on the toilet paper and a little bit of discomfort in the top end of her vagina. She is not having any other bleeding or clots. No purulent discharge. No fever chills. No new abdominal pain. She is worried that the bleeding might represent a dehiscence of her vaginal cuff so came here to the ER. She has not had time to speak to her surgeon. Related Data Home Medications ?Medication ?Instructions ?Recorded ?Confirmed escitalopram oxalate 20 mg tablet 20 mg PO DAILY 08/26/23 11/06/24 lisinopril 10 mg tablet 10 mg PO DAILY 08/26/23 11/06/24 propranolol 10 mg tablet 10 mg PO 3XD 08/26/23 09/30/24 amitriptyline 10 mg tablet 10 mg PO QPM 11/06/24 11/06/24 Previous Rx's ?Medication ?Instructions ?Recorded ibuprofen 600 mg tablet 600 mg PO Q6H PRN #30 tabs 07/10/22 Allergies Allergy/AdvReac Type Severity Reaction Status Date / Time ragweed pollen Allergy Itchy Verified 08/26/23 13:53 throat Cat hair extract Allergy Severe Itchy Uncoded 07/10/22 07:22 throat PFSH PFSH Medical History FLAKO I (cervical intraepithelial neoplasia I) ?N87.0 - Mild cervical dysplasia (ICD-10) Generalized anxiety disorder ?F41.1 - Generalized anxiety disorder (ICD-10) Seizure ?R56.9 - Unspecified convulsions (ICD-10) Tobacco use disorder ?F17.200 - Nicotine dependence, unspecified, uncomplicated (ICD-10) Depression with anxiety ?F41.8 - Other specified anxiety disorders (ICD-10) Major depressive disorder, recurrent, mild ?F33.0 - Major depressive disorder, recurrent, mild (ICD-10) Dysmenorrhea, unspecified ?N94.6 - Dysmenorrhea, unspecified (ICD-10) History of gestational hypertension ?Z87.59 - Personal history of other complications of , childbirth and the puerperium (ICD-10) Depression with anxiety ?F41.8 - Other specified anxiety disorders (ICD-10) History of seizure disorder ?Z86.69 - Personal history of other diseases of the nervous system and sense organs (ICD-10) Migraine with aura ?G43.109 - Migraine with aura, not intractable, without status migrainosus (ICD-10) Surgical History History of colposcopy ?Z98.890 - Other specified postprocedural states (ICD-10) Family History Father Stroke High blood pressure Osteoporosis Drug dependence High cholesterol Mother High cholesterol High blood pressure Social History Narrative: She lives in [facility] with her . Between the 2 of them, they have 5 children, 1 together. She has 2 children from a previous relationship, as does he. She does not smoke, drink alcohol, or use recreational drugs. She works in [employer], where she does a lot of lifting. Smoking Status: Former smoker What tobacco products do you use: cigarettes Smoking quit date/years: <= 15 years ago Do you use any of these nicotine containing products: None How often do you have a drink containing alcohol: never How often do you have six or more drinks on one occasion: Never AUDIT-C Alcohol total score: 0 Non-prescribed substance use: denies use Caffeine: Yes Are you using contraception or practicing any form of control: Yes service: No Exam Narrative: Exam Narrative: Constitutional: Appears well-developed and well-nourished. Alert. Conversant. Non toxic. HENT: Head: Atraumatic. Nose: Nose normal. Mouth/Throat: Oral mucosa is clear and moist. no trismus. Pharynx normal. Eyes: Conjunctivae normal. EOM normal. Pupils equal, round, and reactive to light. No scleral icterus. Neck: Normal range of motion. Neck supple. No tracheal deviation present. Cardiovascular: Normal rate, regular rhythm. No gallop. No friction rub. No murmur heard. Symmetric radial artery pulses Pulmonary/Chest: Effort normal. No stridor. No respiratory distress. No wheezes. No rales. No rhonchi . No tenderness. Abdominal: Soft. Bowel sounds normal. No distension. No mass. No tenderness. She has 3 laparoscopic incisions. They all are well apposed, dry. No signs of bleeding, purulent drainage, infection. No rebound. No guarding. Musculoskeletal: RUE: Normal range of motion. No tenderness. No deformity LUE: Normal range of motion. No tenderness. No deformity RLE: Normal range of motion. No edema. No tenderness. No deformity LLE: Normal range of motion. No edema. No tenderness. No deformity : Exam performed with female structural metal fabricator apprentice. Normal external genitalia. Normal labia minora. Normal vaginal introitus. Vaginal ago says normal. No active bleeding. We were able to identify the suture line at the vaginal cuff. There does appear to be 3 sutures present and they are holding. There is no signs of dehiscence. No active bleeding. No purulent drainage. No redness or irritation of the vaginal mucosa. Neurological: Alert and oriented to person, place, and time. Normal strength. CN II-VII intact. No sensory deficit. GCS eye subscore is 4. GCS verbal subscore is 5. GCS motor subscore is 6. Normal coordination Skin: Skin is warm and dry. No rash noted. No pallor. Normal capillary refill. Psychiatric: Normal mood. Normal affect. Const: Vital Signs, click to edit/add: Vital Signs - 24 hr 11/06/24 10:10 Temperature 97.5 F L Pulse Rate [Pulse Oximeter] 133 H Respiratory Rate 16 Blood Pressure [Ri ght Upper Arm] 152/82 H Pulse Oximetry 98 Oxygen Delivery Me thod Room Air Course Course ED Course: We attempted to reach out to consult with this patient's surgeon (or his on-call partners) through the [address] in [place]. Unfortunately the doctor is not available and he has no on-call partners. Apparently today D1 has coverage from a stamp redemption clerk who is cross covering from [facility]. They are not familiar with this patient. I discussed this patient briefly by phone with Dr. Ball, stamp redemption clerk coming for [employer]. She assures me that it is appropriate to perform a gentle speculum exam. Unless there is severe bleeding or active dehiscence, she she would recommend have the patient follow-up with her surgeon Vital Signs Vital signs: Initial Vital Signs Temperature 97.5 F L 11/06/24 10:10 Temperature Source Temporal Artery Scan 11/06/24 10:10 Pulse Rate 133 H 11/06/24 10:10 Respiratory Rate 16 11/06/24 10:10 Blood Pressure 152/82 H 11/06/24 10:10 Blood Pressure Mean 105 11/06/24 10:10 Pulse Oximetry 98 11/06/24 10:10 Oxygen Delivery Method Room Air 11/06/24 10:10 Vital Signs Temperature 97.5 F L 11/06/24 10:10 Pulse Rate 133 H 11/06/24 10:10 Respiratory Rate 16 11/06/24 10:10 Blood Pressure 152/82 H 11/06/24 10:10 Pulse Oximetry 98 11/06/24 10:10 Oxygen Delivery Method Room Air 11/06/24 10:10 Temperature 97.5 F L 11/06/24 10:10 Pulse Rate 133 H 11/06/24 10:10 Respiratory Rate 16 11/06/24 10:10 Blood Pressure 152/82 H 11/06/24 10:10 Pulse Oximetry 98 11/06/24 10:10 Oxygen Delivery Method Room Air 11/06/24 10:10 Medical Decision Making MDM Narrative Medical decision making narrative: Pleasant 34-year-old female who is 3 weeks status post laparoscopic hysterectomy with cervix removal and vaginal cuff presenting to the ER today with some small volume vaginal spotting. She is concerned because she had to catch her daughter yesterday (as she was falling off the couch). She had had a brief episode of bleeding this morning that is now stopped. She is not bleeding here in the ER. After consultation with OB we did do a speculum exam and there is no evidence for bleeding or vaginal cuff dehiscence. I do not see evidence for any infection along this suture line. She is not having any abdominal tenderness or fever to suggest an intra-abdominal infection or abscess. Laboratory workup shows normal hemoglobin, normal platelet count, normal INR. Urinalysis is negative for hematuria to suggest this was non vaginal bleeding. No evidence for UTI. She did present with tachycardia, which was likely related to anxiety. Heart rate and vital signs normalized after she was here in the ER. Patient is reassured by her workup and she is eager for discharge home. Precautions for return to the ER reviewed. She will follow-up with her desktop support manager tomorrow for recheck. Lab Data Labs: Lab Results 11/06/24 11/06/24 Range/Units 11:10 11:31 WBC 4.17 L (4.50-11.00) K/uL RBC 4.31 (4.00-5.20) m/uL Hgb 13.1 (12.0-16.0) gm/dL Hct 39.8 (33.0-51.0) % MCV 92 (80-100) fL MCH 30 (26-34) pg MCHC 33 (32-36) gm/dL RDW Coeff of Anastasiia 12.6 (11.5-15.5) % Plt Count 223 (140-440) K/uL Neut % (Auto) 67.4 (42.0-72.0) % Lymph % (Auto) 24.2 (20-44) % [place] % (Auto) 6.5 (0.0-11.0) % Eos % (Auto) 1.4 (0.0-7.0) % Baso % (Auto) 0.5 (0.0-3.0) % Neut # (Auto) 2.80 (1.7-7.0) K/uL Lymph # (Auto) 1.00 (0.90-2.90) K/uL [place] # (Auto) 0.30 (0.00-0.90) K/UL Eos # (Auto) 0.10 (0.00-0.50) K/uL Baso # (Auto) 0.00 (0.00-0.30) K/uL Abs Immat Gran (auto) 0.00 (0.00-0.30) K/uL Imm/Tot Granulo (auto) 0.0 % INR 0.94 (0.91-1.10) Urine Color Dark yellow (Yellow) Urine Appearance Slightly Cloudy A (Clear) Urine pH 7.0 (5.0-8.5) Ur Specific [place] 1.020 (1.000-1.030) Urine Protein Negative (Negative) Urine Glucose (UA) Negative (Negative) Urine Ketones Negative (Negative) Urine Blood Negative (Negative) Urine Nitrite Negative (Negative) Urine Bilirubin Negative (Negative) Urine Urobilinogen 0.2 (0.2-1.0) Ur Leukocyte Esterase Negative (Negative) Urine RBC 0-2 (0-2) Urine WBC 0-2 (0-5) Ur Squamous Epith Cells Few (None-Few) Urine Bacteria None (None) Discharge Plan Discharge Clinical Impression: Vaginal bleeding Patient Disposition: Home, Self-Care Condition: Stable Instructions: Abnormal (Dysfunctional) Uterine Bleeding (ED) Additional Instructions: As we discussed, so for your workup looks reassuring. We do not see any signs of bladder infection, anemia from blood loss or any serious complication of your bleeding. Your vaginal exam looks reassuring. We do not see any sign of a vaginal infection or any dehiscence of your stitches. Please continue your normal postoperative routine and your postop restrictions. Please follow-up with your OB doctor tomorrow for recheck. Watch carefully and please return to the ER right away if you have worsening heavy bleeding, high fever, abdominal pain, new or any other concerns. Prescriptions: No Action ibuprofen 600 mg tablet 600 mg PO Q6H PRNQty: 30 0RF amitriptyline 10 mg tablet 10 mg PO QPM propranolol 10 mg tablet 10 mg PO 3XD lisinopril 10 mg tablet 10 mg PO DAILY escitalopram oxalate 20 mg tablet 20 mg PO DAILY Follow Up/Referrals: Myriam Linares MD [Primary Care Provider] - Stand Alone Forms: [employer] [employer] Info Instructions
[2024-11-06 11:20] LABS: Basophils Percent Auto 0.5 % (0.0-3.0); Eosinophils Percent Auto 1.4 % (0.0-7.0); Hematocrit 39.8 % (33.0-51.0); Hemoglobin* 13.1 gm/dL (12.0-16.0); Lymphocytes Percent Auto 24.2 % (20-44); Mean Corpuscular HGB Conc 33 gm/dL (32-36); Mean Corpuscular Hemoglobin 30 pg (26-34); Mean Corpuscular Volume 92 fL (80-100); Monocytes Percent Auto 6.5 % (0.0-11.0); Neutrophils Percent Auto 67.4 % (42.0-72.0); Platelet Count* 223 K/uL (140-440); RDW Coefficient of Variation % 12.6 % (11.5-15.5); Red Blood Count 4.31 m/uL (4.00-5.20); White Blood Count* 4.17 K/uL (4.50-11.00)
[2024-11-06 11:34] LABS: Slide Review Reflex No
[2024-11-06 11:40] LABS: Appearance Urine Slightly Cloudy (Clear); Bilirubin Urine Negative (Negative); Blood Urine Negative (Negative); Color Urine Dark yellow (Yellow); Glucose Urine Negative (Negative); Ketones Urine Negative (Negative); Leukocyte Esterase Urine Negative (Negative); Nitrite Urine Negative (Negative); Protein Urine Negative (Negative); Urobilinogen Urine 0.2 (0.2-1.0)
[2024-11-06 11:49] LABS: INR 0.94 (0.91-1.10); Prothrombin Time 13.2 Seconds
[2024-11-06 12:31] LABS: RBC Urine 0-2 (0-2); WBC Urine 0-2 (0-5)
[2024-11-06 12:32] LABS: Squamous Epithelial Cell Urine Few (None-Few)
== END 2024-11-06 12:46 | disposition home or self-care (01) ==
PROVIDERS: Emergency Provider Emergency Medicine; PCP Family Medicine
DX: N99.820 Postprocedural hemorrhage of a genitourinary system organ or structure following a genitourinary system procedure (principal)
CPT/HCPCS: 36415; 81001; 85025; 85610; 99283

== ENCOUNTER 2025-03-26 11:56 | Emergency (ER) | payer BC, SELFPAY ==
[2025-03-26 11:59] VITALS: BP 131/95; PULSE 101; RESP 16; TEMP 36.8; O2SAT 97; BMI 32.4
--- OUTSIDE RECORDS SUMMARY | 2025-03-26 11:59 | XMS_ITS | Clinical Summary ---
Author Organization [employer] [facility] Address [address] [place] [id number] Care Team Providers Care Solar Photovoltaic Installer Name Role Phone Myriam Linares MD Primary Care Provider Tyra Merlos LOOM OPERATOR Unavailable Allergies Active Allergy Reactions Criticality Noted Date Comments Allergenic Extracts Hives 03/31/2019 Cats (Fur, Dander, Saliva) Itching 0 Ragweed 01/23/2009 Medications cholecalciferol, Vitamin D3, (Vitamin D-3) 5,000 unit tab tablet Take by mouth once daily. 0 01/30/20 23 Active magnesium oxide 200 mg magnesium chew 07/31/20 23 Active propranoloL (INDERAL) 10 mg tabletIndication s:Generalized anxiety disorder Take 1 tablet (10mg) PO Up to 3 times per day as needed for anxiety 90 Tablet 5 09/11/20 23 Active clindamycin 1 % gelIndications:A cne vulgaris Apply topically to affected area(s) two times daily. 60 g 11 09/15/20 24 Active lisinopriL (PRINIVIL; ZESTRIL) 10 mg tabletIndication s:HTN (hypertension) Take 1 Tablet (10 mg) by mouth once daily. 90 Tablet 3 09/15/20 24 Active acetaminophen (TYLENOL EXTRA STRGTH) 500 mg tabletIndication s:S/P hysterectomy Take 1 Tablet (500 mg) by mouth every 6 hours if needed for Pain. Max acetaminophen dose: 4000mg in 24 hrs. 50 Tablet 4 9:40 AM BLOCK CABLEMAN 10/12/20 24 Active ibuprofen (ADVIL; MOTRIN) 600 mg tabletIndication s:S/P hysterectomy Take 1 Tablet (600 mg) by mouth every 6 hours if needed for Pain. Maximum of 3200 mg in 24 hours. 40 Tablet 4 9:40 AM BLOCK CABLEMAN 10/12/20 24 Active escitalopram oxalate (Lexapro) 20 mg tabletIndication s:Generalized anxiety disorder,Severe recurrent major depression without psychotic features (HC) Take 1 Tablet (20 mg) by mouth once daily. take along with 0.5 of 10mg tablet 90 Tablet 1 01/02/20 25 Active escitalopram oxalate 10 mg tabletIndication s:Generalized anxiety disorder,Obsessi ve-compulsive disorder, unspecified type TAKE 1/2 TABLET BY MOUTH EVERY DAY 45 Tablet 02/24/20 25 Active gabapentin 100 mg capsuleIndicatio ns:Chronic daily headache Take 1 Capsule (100 mg) by mouth at bedtime. 90 Capsule 03/24/20 25 Active amitriptyline 10 mg tabletIndication s:Chronic daily headache Take 2 Tablets (20 mg) by mouth at bedtime. 180 Tablet 1 02/03/20 25 025 Discontin ued(Reord er (E-cancel not sent)) amitriptyline 10 mg tabletIndication s:Chronic daily headache Take 2 Tablets (20 mg) by mouth at bedtime. 180 Tablet 1 03/01/20 25 025 Discontin ued(*Med complete/ Regimen complete/ Level of care change) gabapentin 100 mg capsuleIndicatio ns:Chronic daily headache Take 1 Capsule (100 mg) by mouth three times daily. 90 Capsule 03/24/20 25 025 Discontin ued(*Medi cation adjustmen t) Active Problems Problem Noted Date Diagnosed Date Endometriosis 10/07/2024 Menorrhagia with irregular cycle 10/07/2024 Endometrial polyp 10/07/2024 Prediabetes 09/16/2024 Encounter for therapeutic drug monitoring 2021 Migraine syndrome 04/25/2022 Stress 04/25/2022 Palpitations 04/14/2022 Migraine variant with headache 04/14/2022 Anxiety 04/14/2022 Vaginal delivery 07/06/2021 Family history of early CAD 01/31/2019 FLAKO I (cervical intraepithelial neoplasia I) 11/2017 Overview (09/21/2024): 06/2018 LSIL 09/2018 [place]: Biopsy FLAKO 1, ECC Suggestive of FLKAO 1 09/2019 NIL/HPV+ 09/2020 ASCUS/HPV negative; [place]: Biopsy FLAKO 1 05/2022 NIL/HPV negative 08/2024 NIL/HPV negative. Plan: Pap/HPV due 08/2027. Severe recurrent major depre ssion without psychotic features 01/29/2018 Generalized anxiety disorder 01/29/2018 Generalized anxiety disorder 05/16/2016 Seizure 01/20/2013 Overview (03/20/2015): 06/2008 No meds per neurology Tobacco use disorder 09/25/2010 Overview (09/09/2013): QUIT end of Jul Depression with anxiety 09/17/2010 Depression, major, recurrent, mild 02/28/2010 Dysmenorrhea 01/23/2009 Circadian rhythm sleep disorder, shift work type Resolved Problems Problem Noted Date Diagnosed Date Resolved Date Chest pain 06/17/2023 06/17/2023 Sterilization consult 06/17/20232022 Circadian rhythm sleep disor dian, shift work type 10/13/2022 06/17/2023 12/14/2020 09/16/2024 Overview (05/27/2021): Estimated Date of Delivery: 08/08/21 Patient's last menstrual period was 11/01/2020 (approximate). Last Tdap- 05/23/2021 Last Flu vaccine- 11/12/2017 Glucose (GTT) result- Component Latest Ref Rng & Units 05/23/2021 HEMOGLOBIN 12.0 - 16.0 g/dL 9.9 (L) MCV 80 - 100 fL 96 GLUCOSE,GESTATIONAL 65 - 139 mg/dL 124 TREPONEMA PALLIDUM Negative Negative 20 week US: FINDINGS: Sonographic imaging demonstrates a single living intrauterine gestation. Fetus demonstrates a regular cardiac rate of 136 beats per minute. Fetus has a vertex position. The placenta lies posteriorly without evidence of placenta previa. Amniotic fluid volume appears normal. Single deepest vertical pocket: 3.6 cm. The cervix is closed and measures 4.1 cm in length. The composite ultrasound gestational age is calculated at 20 weeks 6 days with an estimated sonographic due date of 08/14/2021 Allergies Allergen Reactions Cats (Fur, Dander, Saliva) Itching Ragweed OB History Para Term AB Living 5 1 1 0 2 1 SAB TAB Ectopic Multiple Live Births 2 0 0 0 1 # Outcome Date GA Lbr Rafi/2nd Weight Sex Delivery Anes PTL Lv 5 Current 4 SAB 2015 6w0d 3 Term 11/12/15 41w1d 3.63 kg (8 lb) M Vag IV MEDS DON 2 SAB 11/09/12 8w5d Comments: Cytotec 1 Create lab flowsheet for OB labs- Component Latest Ref Rng & Units 02/06/2021 02/06/2021 02/06/2021 10:51 AM 10:51 AM 10:51 AM ANTIBODY SCREEN Negative Negative SPECIMEN EXPIRATION DATE/TIME 02/09/21 23:59 HEMOGLOBIN 12.0 - 16.0 g/dL 12.0 MCV 80 - 100 fL 93 PLATELET COUNT 140 - 440 thou/cu mm 195 MPV 6.5 - 11.0 fL 10.6 RUBELLA IGG ANTIBODY Positive 1.30 ABORH A Rh Positive HBSAG Nonreactive Nonreactive HEPATITIS C ANTIBODY Non-Reactive Non-Reactive HIV-1/HIV-2 ANTIBODY Non-Reactive Non-Reactive TREPONEMA PALLIDUM Negative Negative Past Medical History: . Date Dysplasia of cervix, low grade (FLAKO 1) 10/10/2020 Plan: Pap/HPV due 09/2021 High risk human papilloma virus (HPV) infection of cervix 10/05/2019 10/05/2019 NIL/HPV positive Papanicolaou smear of cervix with low grade squamous intraepithelial lesion (LGSIL) 06/2018- LSIL care 03/20/2015 Seizure (HC) 01/20/2013 no meds per neurology, last seizure age 17 Past Surgical History: . Laterality Date COLPOSCOPY 10/05/2018 FLAKO 1 COLPOSCOPY 10/10/2020 FLAKO 1 No data on file. Problems (from 12/13/20 to present) No problems associated with this episode. Dianne Gonzalez RN.....12/14/2020 10:41 AM Encounter for supervision of low-risk in third trimester 03/22/2018 12/14/2020 12/15/2017 12/14/2020 Overview (01/12/2018): It's a boy! [place] care 03/20/2015 12/14/2020 Overview (03/09/2018): Hx: single seizure in 2007 - rubella equivocal - hx BV Estimated Date of Delivery: 05/30/18 Patient's last menstrual period was 08/23/2017. Last Tdap- 03/09/2018 Last Flu vaccine- 11/12/2017 Allergies Allergen Reactions Cats (Fur, Dander, Saliva) Itching Ragweed Obstetric History T1 L1 SAB2 TAB0 Ectopic0 Multiple0 Live Births1 # Outcome Date GA Lbr Rafi/2nd Weight Sex Delivery Anes PTL Lv 4 Current 3 2015 6w0d 2 Term 11/12/15 41w1d 3.629 kg (8 lb) M Vag IV MEDS DON 1 SAB 11/09/12 8w5d Component Latest Ref Rng & Units 10/16/2016 11/03/2016 11/11/2016 ANTIBODY SCREEN Negative Negative SPECIMEN EXPIRATION DATE/TIME 10/19/16 23:59 HEMOGLOBIN 12.0 - 16.0 g/dL 12.6 12.9 12.8 MCV 80 - 100 fL 96 96 95 CHLAMYDIA PROBE N GONORRHOEAE PROBE HIV-1/HIV-2 ANTIBODY Non-Reactive Non-Reactive ABORH A Rh Positive HBV DNA DETECT/QUANT Undetected IU/mL Undetected TREPONEMA PALLIDUM Negative Negative HCG BETA QUANT, mIU/mL 23491 941 Component Latest Ref Rng & Units 2017 ANTIBODY SCREEN Negative SPECIMEN EXPIRATION DATE/TIME HEMOGLOBIN 12.0 - 16.0 g/dL MCV 80 - 100 fL CHLAMYDIA PROBE Negative N GONORRHOEAE PROBE Negative HIV-1/HIV-2 ANTIBODY Non-Reactive ABORH HBV DNA DETECT/QUANT Undetected IU/mL TREPONEMA PALLIDUM Negative HCG BETA QUANT, mIU/mL Past Medical History: Diagnosis Date care 03/20/2015 Seizure (HC) 01/20/2013 no meds per neurology Past Surgical History: Procedure Laterality Date NO PREVIOUS SURGERY No data on file. 4th Problems (from 11/12/17 to present) No problems associated with this episode. Dianne Dee, RNC.....11/13/2017 8:02 AM Pre-eclampsia in third trimester 09/16/2024 Encounters Date Type Department Care Team Description 03/24/2025 2:25 PM CDT Office Visit [facility] [address] [place] [address] Myriam Linares MD Medication Management (Amitriptyline causing fatigue zombie-like has reduced to 10mg at bedtime, but having more headaches. ) 03/24/2025 Travel 03/20/2025 Travel 02/21/[address] [facility] [address] [facility] [place] [phone] Tyra Merlos, YOUSUF Refill Request (Escitalopram Oxalate) 01/31/2025 1:40 PM BLOCK CABLEMAN Office Visit [facility] [place] [facility] [address] [place] [address] Miguel Griffiths MD Consult (Chronic daily headache Ref: Dr. Linares /MR Head/Brain 10/19/23, 05/02/19 /CT Head/Brain 06/10/15 ) 01/31/2025 Travel 01/23/2025 Refill [facility] [address] [place] [address] Myriam Linares MD Refill Request (Amitriptyline 10 mg tablets) 01/02/2025 1:00 PM BLOCK CABLEMAN Telemedicine [facility] [address] [facility] [place] [phone] Tyra Merlos NP Medication Management; Telehealth 01/01/2025 Travel from Last 3 Months Immunizations Immunization Administration Dates Next Due COVID-19 VACCINE SPIKEVAX (M ODERNA 50MCG/0.5ML) 12YO+ PFS 10/21/2024 COVID-19 vaccine (Pfizer-Bio NTech 30mcg/0.3mL) 12YO+ PAMELA-SUCROSE PF, MDV 06/27/2022 COVID-19 vaccine (Pfizer-Bio NTech 30mcg/0.3mL) PF, MDV 05/15/2021,04/24/2021 DTaP 08/09/1997, 5,05/15/1992,03/12,1991 HIB HbOC (HibTITER) 01/21/1993, 2,03/12/1992,11/17 Hepatitis A (Peds) 01/23/2009,07/19/2008 Hepatitis B (Peds) 01/28/2002,10/19/2000, 000 Human Papilloma Virus Vaccine 01/23/2009, 008,07/19/2008 INFLUENZA, IIV3 PF (AGE >= 6 MO) 10/21/2024 Influenza, IIV3 (Age 6-35 mos) 08/28/2011 Influenza, IIV3 (Age >=3 years) 08/28/2011,09/18 Influenza, IIV4 08/27/2021, 7,10/16/2016,08/23,08/29/2014 MMR 08/21/2000,01/21/1993 Meningococcal Vaccine (Menactra) 01/23/2009 Oral Polio Vaccine 08/09/1997,03/12/1992, 991 Polio Virus, Unspecified 07/06/1995 Td (Age >=7 Years) 09/13/2004 Tdap 05/23/2021, 8,08/07/2015,08/29 Varicella Vaccine 08/18/1995 Family History Medical History Relation Name Comments Asthma Brother 1 1 Good Health Brother 1 1 Asthma Brother 2 2 Good Health Brother 2 2 Asthma Brother 3 3 Good Health Brother 3 3 Autism spectrum disorder Daughter Arthritis Father Cancer Father renal Hypertension Father Stroke Father Seizures Maternal Aunt Seizures Maternal Grandmother Arthritis Mother Asthma Mother Genetic Mother AHP Hypertension Mother Cancer Sister 1 sarcoma of leg (half sister) ADD / ADHD Son Relation Name Status Comments Brother 1 1 Alive Brother 2 2 Alive Brother 3 3 Alive Daughter Father Maternal Aunt Maternal Grandmother Mother Alive Sister 1 Alive Son Social History Tobacco Use Types Packs/Day Years Used Date Smoking Tobacco: Former Cigarettes 0.5 8.4 0 03/09/2009 - 08/19/2017 Smokeless Tobacco: Never Tobacco Cessation:Counseling Given: Yes Alcohol Use Standard Drinks/Week Comments Not Currently 0 (1 standard drink = 0.6 oz pur e alcohol) very rarely PHQ-2 Answer Date Recorded PHQ-2 TOTAL SCORE 5 01/01/2025 Social Connections Answer Date Recorded Do you often feel lonely or isolated from those around you? 0 09/14/2024 Financial Resource Strain Answer Date R ecorded Difficulty of Paying Living Expenses 3 09/14/2024 Difficulty of Paying Living Expenses Not on file 09/14/2024 Food Insecurity Answer Date Recorded Do you worry your food will run out before you are able to buy more? 1 09/14/2024 Transportation Needs Answer Date Record ed Does lack of transportation keep you from medica l appointments? 1 09/14/2024 Does lack of transportation keep you from work, meetings or getting things that you need? 1 09/14/2024 Housing Stability Answer Date Recorded What is your housing situation today? 1 09/14/2024 Utilities Answer Date Recorded Do you have trouble paying f or utilities (for example, heat, electricity, water, phone)? 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 Not on file Not on file Obstetrics History Para Term AB IAB SAB Ectopic Multiple Livin g Live Births 5 3 2 1 2 0 2 0 0 3 3 Date Outcome GA Total Labor Labor/2nd/3rd Weight Sex Type Anes PTL Don A1 A5 Name Clin 2011 SAB 8w5 d Comments:Cytotec 2014 Term 41w 1d 3.63 kg (8 lb) M Vag IV Meds Livin g Behre ns Complications:None Delivery Location:[place] 2015 SAB 6w0 d 2017 Term 37w 3d M None Livin g Finnle y Delivery Location:side of ad 2020 34w 2d 20h 49m 20h 41m/0h 04m/0h 04m 2.45 kg (5 lb 6.4 oz) F VAGINA L RYAN IV Meds, Epidu ral Livin g 8 9 LINA, BG Lashell Still MD Complications:None Delivery Location:[facility] ( [facility] [address] L&D TRIAGE) Last Filed Vital Signs Vital Sign Reading Time Taken Comments Blood Pressure 133/82 03/24/2025 2:11 PM CDT Pulse 98 03/24/2025 2:11 PM CDT Temperature 36.6 C (97.9 F) 11/10/2024 8:16 AM BLOCK CABLEMAN Respiratory Rate 16 10/12/2024 1:15 PM BLOCK CABLEMAN Oxygen Saturation 98% 01/31/2025 1:49 PM BLOCK CABLEMAN Inhaled Oxygen Concentration - - Weight 91.8 kg (202 lb 6.4 oz) 03/24/2025 2:11 P M CDT Height 169.5 cm (5' 6.73) 12/20/2024 9:35 AM CS T Body Mass Index 31.96 12/20/2024 9:35 AM BLOCK CABLEMAN Plan of Treatment Upcoming Encounters Date Type Department Care Team (Late st Contact Info) Description 03/28/2025 1:30 PM CDT Telemedicine [facility] [address] [place] [phone] Tyra Merlos, LOOM OPERATOR [address] [place] [address] 03/29/2025 9:35 AM CDT Office Visit [facility] [address] [place] [address] Myriam Linares MD [address] [place] [address] Health Maintenance Due Date Last Done Comments BMI (ht and wt on same day) for age 18+ 12/20/2025 12/20/2024, 11/08/2024, 10/07/2024, Additional history exists Depression screening for age 12+ 01/02/2026 01/02/2025, 01/01/2025, 11/18/2024, Additional history exists Tetanus booster 05/23/2031 05/23/2021, 02/28, 08/07/2015, Additional history exists HIV for age 15-65 Completed 02/06/2021, , 10/16/2016, Additional history exists Hepatitis C screening for age 18-79 Completed 02/06/2021, 03/12/2015 Tdap Completed 05/23/2021, 02/28, 08/07/2015, Additional history exists COVID-19 vaccine series Completed 10/21/20, 06/27/2022, 05/15/2021, Additional history exists Influenza Vaccine Completed 10/21/2024, , 11/12/2017, Additional history exists Pneumococcal series for age 6-49 Aged Out No longer eligible based on patient's age to complete this topic Procedures Procedure Name Priority Date/Time Associated Diagnosis Comments ANTI HIV 1/2 Routine 02/06/2021 10:51 AM BLOCK CABLEMAN Encounter for supervision of other normal in second trimester (HC) ANTI HCV Routine 02/06/2021 10:51 AM BLOCK CABLEMAN Encounter for supervision of other normal in second trimester (HC) from Last 3 Months or Most Recently Relevant to Health Maintenance Results * ANTI HCV (02/06/2021 10:51 AM BLOCK CABLEMAN) Pathologist [facility] HEPATITIS [facility] ANTIBODY Non-React derek Non-React derek 02/06/2021 6:35 PM BLOCK CABLEMAN [facility] Comment:Antibodies to HCV no t detected; does not exclude the possibility of exposure to HCV. Blood BLOOD SPECIMEN / Unknown Venipuncture / Unknown 02/06/2021 10:51 AM BLOCK CABLEMAN 02/06/2021 10:51 AM BLOCK CABLEMAN us Myriam Linares MD SEND OUTS Final Resul t [facility] [address] [place] [address], [place] * ANTI HIV 1/2 (02/06/2021 10:51 AM BLOCK CABLEMAN) HIV-1/HIV-2 ANTIBODY Non-Reacti ve Non-Reacti ve 02/06/2021 6:28 PM BLOCK CABLEMAN [facility] Comment:HIV-1 p24 and HIV-1/ HIV-2 Ab not detected. Blood BLOOD SPECIMEN / Unknown Venipuncture / Unknown 02/06/2021 10:51 AM BLOCK CABLEMAN 02/06/2021 10:51 AM BLOCK CABLEMAN us Myriam Linares MD SEND OUTS Final Resul t [facility] [address] [place] [address], from Last 3 Months or Most Recently Relevant to Health Maintenance Insurance [facility] [place] * Guarantor: JESUS [employer] Account Type Relation to Patient Date of Phone Billing Address [employer] Employer [phone] (Home) [address] [place] [address] Advance Directives * Full Code (Latest Code Status on File) Date Activated Date Inactivated Comments 10/12/2024 7:56 AM 10/12/2024 4:03 PM Question Answer Comments Code Status Discussion: Reviewed Preferences * Full Code Date Activated Date Inactivated Comments 07/04/2021 6:36 PM 07/08/2021 3:37 PM Question Answer Comments Code Status Discussion: Not Discussed Care Teams Solar Photovoltaic Installer Relationship Specialty Start Date End Date Myriam Linares MD [address] [place] [address] PCP - General Family Practice 08/23/20 Tyra Merlos NP [address] [place] [id number] Nurse Practitioner - Mental Health 04/09/23
--- NOTE | 2025-03-26 12:04 | ED_ITS ---
HPI - General Adult General Date Seen: 03/26/25 Chief complaint: Weakness Stated complaint: ANXIETY Time Seen by Provider: 03/26/25 11:57 Source: patient and EMS Mode of arrival: EMS Limitations: no limitations History of Present Illness HPI narrative: Patient is a 34-year-old female presenting to the emergency department for lightheadedness. She states she was driving her vehicle when also she felt like she was going to pass out. States her vision did not go dark overall been mostly felt like her head was up in the air. after this she became anxious she states. Had a panic attack and called EMS. Has not had this lightheaded feeling before but does have a history of anxiety and panic attack. She has been recently weaning off for amitriptyline per doctor recommendations. She does states she has a headache that she states is relatively mild for her standards. She thinks she might be dehydrated that she has not been drinking much fluids. Has been eating appropriately though she states. no other concerns noted. EMS states she was slightly tachycardic and hypertensive for them otherwise acting normally. She has no other concerns at this time. Denies chest pain, shortness of breath, dizziness, abdominal pain, diarrhea, constipation, vision changes, weakness, numbness. No family history of heart disease that she is aware of. No history of family members dying of a young age from unexplained events. Related Data Home Medications ?Medication ?Instructions ?Recorded ?Confirmed escitalopram oxalate 20 mg tablet 25 mg PO DAILY 08/26/23 03/26/25 lisinopril 10 mg tablet 10 mg PO DAILY 08/26/23 03/26/25 propranolol 10 mg tablet 10 mg PO 3XD PRN 08/26/23 03/26/25 amitriptyline 10 mg tablet 10 mg PO QPM 11/06/24 03/26/25 Previous Rx's ?Medication ?Instructions ?Recorded ibuprofen 600 mg tablet 600 mg PO Q6H PRN #30 tabs 07/10/22 Allergies Allergy/AdvReac Type Severity Reaction Status Date / Time ragweed pollen Allergy Itchy Verified 03/26/25 11:59 throat Cat hair extract Allergy Severe Itchy Uncoded 07/10/22 07:22 throat Review of Systems Status of ROS: Reports: 10 or more systems reviewed and unremarkable except as noted in History and below [facility] Medical History FLAKO I (cervical intraepithelial neoplasia I) ?N87.0 - Mild cervical dysplasia (ICD-10) Generalized anxiety disorder ?F41.1 - Generalized anxiety disorder (ICD-10) Seizure ?R56.9 - Unspecified convulsions (ICD-10) Tobacco use disorder ?F17.200 - Nicotine dependence, unspecified, uncomplicated (ICD-10) Depression with anxiety ?F41.8 - Other specified anxiety disorders (ICD-10) Major depressive disorder, recurrent, mild ?F33.0 - Major depressive disorder, recurrent, mild (ICD-10) Dysmenorrhea, unspecified ?N94.6 - Dysmenorrhea, unspecified (ICD-10) History of gestational hypertension ?Z87.59 - Personal history of other complications of , childbirth and the puerperium (ICD-10) Depression with anxiety ?F41.8 - Other specified anxiety disorders (ICD-10) History of seizure disorder ?Z86.69 - Personal history of other diseases of the nervous system and sense organs (ICD-10) Migraine with aura ?G43.109 - Migraine with aura, not intractable, without status migrainosus (ICD-10) Surgical History History of colposcopy ?Z98.890 - Other specified postprocedural states (ICD-10) Family History Father Stroke High blood pressure Osteoporosis Drug dependence High cholesterol Mother High cholesterol High blood pressure Social History Narrative: She lives in [place] with her . Between the 2 of them, they have 5 children, 1 together. She has 2 children from a previous relationship, as does he. She does not smoke, drink alcohol, or use recreational drugs. She works in [employer], where she does a lot of lifting. Smoking Status: Former smoker What tobacco products do you use: cigarettes Smoking quit date/years: <= 15 years ago Do you use any of these nicotine containing products: None How often do you have a drink containing alcohol: never How often do you have six or more drinks on one occasion: Never AUDIT-C Alcohol total score: 0 Non-prescribed substance use: marijuana (any form) Non-prescribed substance use details: thc some days Caffeine: Yes Are you using contraception or practicing any form of control: Yes service: No Exam Narrative: Exam Narrative: Insert my physical exam. Const: Vital Signs, click to edit/add: Vital Signs - 24 hr 03/26/25 11:59 Temperature 98.2 F Pulse Rate [Pulse Oximeter] 101 H Respiratory Rate 16 Blood Pressure [Le ft Upper Arm] 131/95 H Pulse Oximetry 97 Oxygen Delivery Me thod Room Air Course Vital Signs Vital signs: Initial Vital Signs Temperature 98.2 F 03/26/25 11:59 Temperature Source Temporal Artery Scan 03/26/25 11:59 Pulse Rate 101 H 03/26/25 11:59 Pulse Rhythm Regular 03/26/25 11:59 Respiratory Rate 16 03/26/25 11:59 Blood Pressure 131/95 H 03/26/25 11:59 Blood Pressure Mean 107 H 03/26/25 11:59 Blood Pressure Position Supine 03/26/25 11:59 Pulse Oximetry 97 03/26/25 11:59 Oxygen Delivery Method Room Air 03/26/25 11:59 Vital Signs Temperature 98.2 F 03/26/25 11:59 Pulse Rate 101 H 03/26/25 11:59 Respiratory Rate 16 03/26/25 11:59 Blood Pressure 131/95 H 03/26/25 11:59 Pulse Oximetry 97 03/26/25 11:59 Oxygen Delivery Method Room Air 03/26/25 11:59 Temperature 98.2 F 03/26/25 11:59 Pulse Rate 101 H 03/26/25 11:59 Respiratory Rate 16 03/26/25 11:59 Blood Pressure 131/95 H 03/26/25 11:59 Pulse Oximetry 97 03/26/25 11:59 Oxygen Delivery Method Room Air 03/26/25 11:59 Medical Decision Making MDM Narrative Medical decision making narrative: Patient sounds like she may have had a near syncopal episode. Will check EKG, troponin, CBC, BMP, magnesium. Will make sure her electrolytes are normal. Will check for any other abnormalities. This may be related to dehydration and anxiety. Will give her some fluids. Her headache is relatively mild for her she states and she a has headaches like this all the time. I do not believe imaging is necessary. Lab work returned showing no concerning abnormalities. When out in the room heart rate improved to the 80s. She is feeling much better at this time. EKG shows no concerning findings. I do not know what is causing her issues but not see any concerning abnormalities. At this time I believe she is safe for discharge. She is agreeable to this plan. Lab Data Labs: Lab Results 03/26/25 Range/Units 12:38 WBC 6.71 (4.50-11.00) K/uL RBC 4.10 (4.00-5.20) m/uL Hgb 12.7 (12.0-16.0) gm/dL Hct 37.9 (33.0-51.0) % MCV 92 (80-100) fL MCH 31 (26-34) pg MCHC 34 (32-36) gm/dL RDW Coeff of Anastasiia 13.5 (11.5-15.5) % Plt Count 209 (140-440) K/uL Neut % (Auto) 81.9 H (42.0-72.0) % Lymph % (Auto) 12.4 L (20-44) % [place] % (Auto) 5.5 (0.0-11.0) % Eos % (Auto) 0.1 (0.0-7.0) % Baso % (Auto) 0.1 (0.0-3.0) % Neut # (Auto) 5.50 (1.7-7.0) K/uL Lymph # (Auto) 0.80 L (0.90-2.90) K/uL [place] # (Auto) 0.40 (0.00-0.90) K/UL Eos # (Auto) 0.01 (0.00-0.50) K/uL Baso # (Auto) 0.01 (0.00-0.30) K/uL Abs Immat Gran (auto) 0.00 (0.00-0.30) K/uL Imm/Tot Granulo (auto) 0.0 % Sodium 135 (135-149) mmol/L Potassium 4.1 (3.6-5.1) mmol/L Chloride 104 (96-114) mmol/L Carbon Dioxide 24 (20-32) mmol/L Anion Gap 7 (7-15) mEq/L BUN 11 (5-24) mg/dL Creatinine 0.7 (0.5-1.5) mg/dL Estimated Creat Clear 107.01 Estimated GFR 117 ml/min Glucose 119 H (60-115) mg/dL Calcium 9.0 (8.4-10.6) mg/dL Magnesium 1.9 (1.5-2.6) mg/dL POC Troponin I 0.00 L (0.01-0.04) ng/ml ECG Data Attestation: I personally reviewed and interpreted this ECG as follows: Prior ECG tracings: available for review Interpretation: Normal sinus rhythm with a rate of 85 beats per minute, left axis deviation, normal interval, normal axis, no ST or T-wave abnormalities. Appears similar pr evious EKG of the file Discharge Plan Discharge Clinical Impression: Lightheadedness Patient Disposition: Home, Self-Care Condition: Stable Instructions: Lightheadedness (ED) Additional Instructions: I do not know exactly what is causing symptoms but I see no concerning abnormalities. Follow-up with the primary care provider if symptoms persist or return to emergency department for new or worsening symptoms. Prescriptions: No Action ibuprofen 600 mg tablet 600 mg PO Q6H PRNQty: 30 0RF amitriptyline 10 mg tablet 10 mg PO QPM propranolol 10 mg tablet 10 mg PO 3XD PRN lisinopril 10 mg tablet 10 mg PO DAILY escitalopram oxalate 20 mg tablet 25 mg PO DAILY Follow Up/Referrals: Myriam Linares MD [Primary Care Provider] - Stand Alone Forms: [employer] Info Instructions
--- OUTSIDE RECORDS SUMMARY | 2025-03-26 12:26 | XMS_ITS | Clinical Summary ---
Author Organization [employer] [facility] Address [address] [place] [address] Care Team Providers Care Stained Glass Window Designer Name Role Phone Myriam Linares MD Primary Care Provider Tyra Merlos FIELD CASE MANAGER Unavailable Allergies Active Allergy Reactions Criticality Noted [...] 24 hrs. 50 Tablet 4 9:40 AM AIRCREWMAN 10/12/20 24 Active ibuprofen (ADVIL; MOTRIN) 600 mg tabletIndication s:S/P hysterectomy Take 1 Tablet (600 mg) by mouth every 6 hours if needed for Pain. Maximum of 3200 mg in 24 hours. 40 Tablet 4 9:40 AM AIRCREWMAN 10/12/20 24 Active escitalopram oxalate (Lexapro) 20 [...] I) 11/2017 Overview (09/21/2024): 06/2018 LSIL 09/2018 [place]: Biopsy FLAKO 1, ECC Suggestive of FLAKO 1 09/2019 NIL/HPV+ 09/2020 ASCUS/HPV negative; [place]: Biopsy FLAKO 1 05/2022 NIL/HPV negative 08/2024 [...] PALLIDUM Negative Negative HCG BETA QUANT, mIU/mL [id number] Component Latest Ref Rng & Units [...] Description 03/24/2025 2:25 PM CDT Office Visit [facility] [address] [place] [address] Myriam Linares MD Medication Management (Amitriptyline causing fatigue zombie-like has reduced to 10mg at bedtime, but having more headaches. ) 03/24/2025 Travel 03/20/2025 Travel 02/21/2025 Refill [facility] [address] [facility] [place] [phone] Tyra Merlos, YOUSUF Refill Request (Escitalopram Oxalate) 01/31/2025 1:40 PM AIRCREWMAN Office Visit [facility] [place] [facility] [address] [place] [address] Miguel Griffiths MD Consult (Chronic daily headache Ref: Dr. Linares /MR Head/Brain 10/19/23, 05/02/19 /CT Head/Brain 06/10/15 ) 01/31/2025 Travel 01/23/2025 Refill [facility] [address] [place] [address] Myriam Linares MD Refill Request (Amitriptyline 10 mg tablets) 01/02/2025 1:00 PM AIRCREWMAN Telemedicine [facility] [address] [facility] [place] [phone] Tyra Merlos NP Medication Management; Telehealth 01/01/2025 [...] AM CDT Legal Sex Female 5:25 AM AIRCREWMAN Gender Identity Female 04/09/2022 10:22 AM CDT [...] Meds Livin g Behre ns Complications:None Delivery Location:[place] 2015 SAB 6w0 d 2017 Term 37w 3d M None Livin g Finnle y Delivery Location:side of ad 2020 34w 2d 20h 49m 20h 41m/0h 04m/0h 04m 2.45 kg (5 lb 6.4 oz) F VAGINA L RYAN IV Meds, Epidu ral Livin g 8 9 LINA, BG Lashell Still MD Complications:None Delivery Location:[facility] ( [facility] [address] L&D TRIAGE) Last Filed Vital Signs Vital Sign Reading Time Taken Comments Blood Pressure 133/82 03/24/2025 2:11 PM CDT Pulse 98 03/24/2025 2:11 PM CDT Temperature 36.6 C (97.9 F) 11/10/2024 8:16 AM AIRCREWMAN Respiratory Rate 16 10/12/2024 1:15 PM AIRCREWMAN Oxygen Saturation 98% 01/31/2025 1:49 PM AIRCREWMAN Inhaled Oxygen Concentration - - Weight 91.8 kg (202 lb 6.4 oz) 03/24/2025 2:11 P M CDT Height 169.5 cm (5' 6.73) 12/20/2024 9:35 AM CS T Body Mass Index 31.96 12/20/2024 9:35 AM AIRCREWMAN Plan of Treatment Upcoming Encounters Date Type Department Care Team (Late st Contact Info) Description 03/28/2025 1:30 PM CDT Telemedicine [facility] [address] [place] [phone] Tyra Merlos, FIELD CASE MANAGER [address] [place] [address] 03/29/2025 9:35 AM CDT Office Visit [facility] [address] [place] [address] Myriam Linares MD [address] [place] [address] Health Maintenance Due Date Last Done Comments [...] ANTI HIV 1/2 Routine 02/06/2021 10:51 AM AIRCREWMAN Encounter for supervision of other normal in second trimester (HC) ANTI HCV Routine 02/06/2021 10:51 AM AIRCREWMAN Encounter for supervision of other normal in second trimester (HC) from Last 3 Months or Most Recently Relevant to Health Maintenance Results * ANTI HCV (02/06/2021 10:51 AM AIRCREWMAN) Pathologist [facility] HEPATITIS C ANTIBODY Non-React derek Non-React derek 02/06/2021 6:35 PM AIRCREWMAN [facility] Comment:Antibodies to HCV no t detected; does not exclude the possibility of exposure to HCV. Blood BLOOD SPECIMEN / Unknown Venipuncture / Unknown 02/06/2021 10:51 AM AIRCREWMAN 02/06/2021 10:51 AM AIRCREWMAN us Myriam Linares MD SEND OUTS Final Resul t [facility] [address] [place] [address], [place] * ANTI HIV 1/2 (02/06/2021 10:51 AM AIRCREWMAN) HIV-1/HIV-2 ANTIBODY Non-Reacti ve Non-Reacti ve 02/06/2021 6:28 PM AIRCREWMAN [facility] Comment:HIV-1 p24 and HIV-1/ HIV-2 Ab not detected. Blood BLOOD SPECIMEN / Unknown Venipuncture / Unknown 02/06/2021 10:51 AM AIRCREWMAN 02/06/2021 10:51 AM AIRCREWMAN us Myriam Linares MD SEND OUTS Final Resul t [facility] [address] [place] [address], from Last 3 Months or Most Recently Relevant to Health Maintenance Insurance [facility] [place] * Guarantor: JESUS KRAUSE [employer] DS Account Type Relation to Patient Date of Phone Billing Address [employer] Employer [phone] (Home) [address] [place] [address] Advance Directives * Full Code (Latest Code Status on File) Date Activated Date Inactivated Comments 10/12/2024 7:56 AM 10/12/2024 4:03 PM Question Answer Comments Code Status Discussion: Reviewed Preferences * Full Code Date Activated Date Inactivated Comments 07/04/2021 6:36 PM 07/08/2021 3:37 PM Question Answer Comments Code Status Discussion: Not Discussed Care Teams Stained Glass Window Designer Relationship Specialty Start Date End Date Myriam Linares MD [address] [facility] [place] [address] PCP - General Family Practice 08/23/20 Tyra Merlos NP [address] [place] [address] Nurse Practitioner - Mental Health 04/09/23
[2025-03-26 12:31] VITALS: BP 116/79; PULSE 84; RESP 15; O2SAT 97
[2025-03-26 12:47] LABS: Basophils Absolute Auto 0.01 K/uL (0.00-0.30); Basophils Percent Auto 0.1 % (0.0-3.0); Eosinophils Absolute Auto 0.01 K/uL (0.00-0.50); Eosinophils Percent Auto 0.1 % (0.0-7.0); Hematocrit 37.9 % (33.0-51.0); Hemoglobin* 12.7 gm/dL (12.0-16.0); Lymphocytes Percent Auto 12.4 % (20-44); Mean Corpuscular HGB Conc 34 gm/dL (32-36); Mean Corpuscular Hemoglobin 31 pg (26-34); Mean Corpuscular Volume 92 fL (80-100); Monocytes Percent Auto 5.5 % (0.0-11.0); Neutrophils Percent Auto 81.9 % (42.0-72.0); Platelet Count* 209 K/uL (140-440); RDW Coefficient of Variation % 13.5 % (11.5-15.5); White Blood Count* 6.71 K/uL (4.50-11.00)
[2025-03-26 12:53] LABS: Slide Review Reflex No
[2025-03-26 13:01] LABS: Chloride* 104 mmol/L (96-114); Potassium* 4.1 mmol/L (3.6-5.1); Sodium* 135 mmol/L (135-149)
[2025-03-26 13:02] VITALS: BP 106/79; PULSE 88; RESP 19; O2SAT 99
[2025-03-26 13:04] LABS: Anion Gap 7 mEq/L (7-15); Blood Urea Nitrogen* 11 mg/dL (5-24); Carbon Dioxide* 24 mmol/L (20-32); Creatinine* 0.7 mg/dL (0.5-1.5); Est. Creatinine Clearance* 107.01; Estimated Glomerular Filt Rate 117 ml/min
[2025-03-26 13:05] LABS: Glucose* 119 mg/dL (60-115); Magnesium* 1.9 mg/dL (1.5-2.6)
[2025-03-26 13:45] VITALS: PULSE 79; RESP 19; O2SAT 98
== END 2025-03-26 14:01 | disposition home or self-care (01) ==
PROVIDERS: Emergency Provider Student in an Organized Health Care Education/Training Program; PCP Family Medicine
DX: R42 Dizziness and giddiness (principal)
CPT/HCPCS: 36415; 80048; 83735; 84484; 85025; 93005; 99284

== ENCOUNTER 2025-04-02 15:43 | Emergency (ER) | payer BC, SELFPAY ==
--- OUTSIDE RECORDS SUMMARY | 2025-04-02 15:46 | XMS_ITS | Clinical Summary ---
Author Organization [employer] [facility] Address [address] [place] [address] Care Team Providers Care Direct Sales Professional Name Role Phone Myriam Linares MD Primary Care Provider Tyra Merlos PARLIAMENTARY COUNSEL Unavailable Allergies Active Allergy Reactions Criticality Noted [...] 24 hrs. 50 Tablet 4 9:40 AM READING INTERVENTIONIST 10/12/20 24 Active ibuprofen (ADVIL; MOTRIN) 600 mg tabletIndication s:S/P hysterectomy Take 1 Tablet (600 mg) by mouth every 6 hours if needed for Pain. Maximum of 3200 mg in 24 hours. 40 Tablet 4 9:40 AM READING INTERVENTIONIST 10/12/20 24 Active gabapentin 100 mg capsuleIndicatio ns:Chronic daily headache Take 1 Capsule (100 mg) by mouth at bedtime. 90 Capsule 03/24/20 25 Active escitalopram oxalate 10 mg tabletIndication s:Generalized anxiety disorder,Obsessi ve-compulsive disorder, unspecified type Take 0.5 Tablets (5 mg) by mouth once daily. 45 Tablet 1 03/28/20 25 Active escitalopram oxalate (Lexapro) 20 mg tabletIndication s:Generalized anxiety disorder,Severe recurrent major depression without psychotic features (HC) Take 1 Tablet (20 mg) by mouth once daily. take along with 0.5 of 10mg tablet 90 Tablet 1 03/28/20 25 Active escitalopram oxalate (Lexapro) 20 mg tabletIndication s:Generalized anxiety disorder,Severe recurrent major depression without psychotic features (HC) Take 1 Tablet (20 mg) by mouth once daily. take along with 0.5 of 10mg tablet 90 Tablet 1 01/02/20 25 025 Discontin ued(Reord er (E-cancel not sent)) escitalopram oxalate 10 mg tabletIndication s:Generalized anxiety disorder,Obsessi ve-compulsive disorder, unspecified type TAKE 1/2 TABLET BY MOUTH EVERY DAY 45 Tablet 02/24/20 25 025 Discontin ued(Reord er (E-cancel not [...] I) 11/2017 Overview (09/21/2024): 06/2018 LSIL 09/2018 [place]: Biopsy FLAKO 1, ECC Suggestive of FLAKO 1 09/2019 NIL/HPV+ 09/2020 ASCUS/HPV negative; [place]: Biopsy FLAKO 1 05/2022 NIL/HPV negative 08/2024 [...] PALLIDUM Negative Negative HCG BETA QUANT, mIU/mL [id number] 941 Component Latest Ref Rng & Units [...] No problems associated with this episode. Dianne Dee RNC.....11/13/2017 8:02 AM Pre-eclampsia in third trimester 09/16/2024 Encounters Date Type Department Care Team Description 03/29/2025 9:35 AM CDT Office Visit [facility] [address] [facility] [place] [address] Myriam Linares MD Derm Problem 03/29/2025 Travel 03/28/2025 1:30 PM CDT Telemedicine [facility] [address] [facility] [place] [phone] Tyra Merlos NP Follow Up; Telehealth 03/27/2025 Travel 03/24/2025 2:25 PM CDT Office Visit [facility] [address] [place] [address] Myriam Linares MD Medication Management (Amitriptyline causing fatigue zombie-like has reduced to 10mg at bedtime, but having more headaches. ) 03/24/2025 Travel 03/20/2025 Travel 02/21/2025 Refill [facility] [address] [facility] [place] [phone] Tyra Merlos NP Refill Request (Escitalopram Oxalate) 01/31/2025 1:40 PM READING INTERVENTIONIST Office Visit [facility] [place] [facility] [address] [facility] [place] [address] Miguel Griffiths MD Consult (Chronic daily headache Ref: Dr. Linares /MR Head/Brain 10/19/23, 05/02/19 /CT Head/Brain 06/10/15 ) 01/31/2025 Travel 01/23/2025 Refill [facility] [address] [facility] [place] [address] Myriam Linares MD Refill Request (Amitriptyline 10 mg tablets) from Last 3 Months Immunizations Immunization Administration [...] PHQ-2 Answer Date Recorded PHQ-2 TOTAL SCORE 4 03/27/2025 Social Connections Answer Date Recorded Do you [...] AM CDT Legal Sex Female 5:25 AM READING INTERVENTIONIST Gender Identity Female 04/09/2022 10:22 AM CDT [...] Meds Livin g Behre ns Complications:None Delivery Location:[place] 2015 SAB 6w0 d 2017 Term 37w 3d M None Livin g Finnle y Delivery Location:side of ro ad 2020 34w 2d 20h 49m 20h 41m/0h 04m/0h 04m 2.45 kg (5 lb 6.4 oz) F VAGINA L RYAN IV Meds, Epidu ral Livin g 8 9 LINA, BG Lashell Still MD Complications:None Delivery Location:Hospital ( [facility] [address] L&D TRIAGE) Last Filed Vital Signs Vital Sign Reading Time Taken Comments Blood Pressure 128/82 03/29/2025 9:51 AM CDT Pulse 84 03/29/2025 9:33 AM CDT Temperature 36.6 C (97.9 F) 11/10/2024 8:16 AM READING INTERVENTIONIST Respiratory Rate 16 10/12/2024 1:15 PM READING INTERVENTIONIST Oxygen Saturation 97% 03/29/2025 9:33 AM CDT Inhaled Oxygen Concentration - - Weight 91.8 kg (202 lb 6.4 oz) 03/24/2025 2:11 P M CDT Height 169.5 cm (5' 6.73) 12/20/2024 9:35 AM CS T Body Mass Index 31.96 12/20/2024 9:35 AM READING INTERVENTIONIST Plan of Treatment Health Maintenance Due Date Last Done Comments BMI (ht and wt on same day) for age 18+ 12/20/2025 12/20/2024, 11/08/2024, 10/07/2024, Additional history exists Depression screening for age 12+ 03/29/2026 03/29/2025, 03/28/2025, 03/27/2025, Additional history exists Tetanus booster 05/23/2031 05/23/2021, [...] ANTI HIV 1/2 Routine 02/06/2021 10:51 AM READING INTERVENTIONIST Encounter for supervision of other normal in second trimester (HC) ANTI HCV Routine 02/06/2021 10:51 AM READING INTERVENTIONIST Encounter for supervision of other normal in second trimester (HC) from Last 3 Months or Most Recently Relevant to Health Maintenance Results * ANTI HCV (02/06/2021 10:51 AM READING INTERVENTIONIST) Pathologist [facility] HEPATITIS C ANTIBODY Non-React derek Non-React derek 02/06/2021 6:35 PM READING INTERVENTIONIST [facility] Comment:Antibodies to HCV no t detected; does not exclude the possibility of exposure to HCV. Blood BLOOD SPECIMEN / Unknown Venipuncture / Unknown 02/06/2021 10:51 AM READING INTERVENTIONIST 02/06/2021 10:51 AM READING INTERVENTIONIST us Myriam Linares MD SEND OUTS Final [facility]ul [facility] [address] [place] [address], [place] * ANTI HIV 1/2 (02/06/2021 10:51 AM READING INTERVENTIONIST) Pathologist [facility] HIV-1/HIV-2 ANTIBODY Non-Reacti ve Non-Reacti ve 02/06/2021 6:28 PM READING INTERVENTIONIST [facility] Comment:HIV-1 p24 and HIV-1/ HIV-2 Ab not detected. Blood BLOOD SPECIMEN / Unknown Venipuncture / Unknown 02/06/2021 10:51 AM READING INTERVENTIONIST 02/06/2021 10:51 AM READING INTERVENTIONIST us Myriam Linares MD SEND OUTS Final Resul t [facility] [address] [place] [address], [place] from Last 3 Months or Most Recently Relevant to Health Maintenance [facility] * Guarantor: JESUS HARRELL DS Account Type Relation to Patient Date of Phone Billing Address [employer] Employer [phone] (Home) [address] [place] [address] Advance Directives * Full Code (Latest Code Status on File) Date Activated Date Inactivated Comments 10/12/2024 7:56 AM 10/12/2024 4:03 PM Question Answer Comments Code Status Discussion: Reviewed Preferences * Full Code Date Activated Date Inactivated Comments 07/04/2021 6:36 PM 07/08/2021 3:37 PM Question Answer Comments Code Status Discussion: Not Discussed Care Teams Direct Sales Professional Relationship Specialty Start Date End Date Myriam Linares MD [address] [place] [address] PCP - General Family Practice 08/23/20 Tyra Merlos NP [address] [place] [address] Nurse Practitioner - Mental Health 04/09/23
[2025-04-02 16:04] VITALS: BP 154/91; PULSE 113; RESP 18; TEMP 36.9; O2SAT 99; BMI 30.9
[2025-04-02 16:19] LABS: Appearance Urine Clear (Clear); Bilirubin Urine Negative (Negative); Blood Urine Negative (Negative); Color Urine Yellow (Yellow); Glucose Urine Negative (Negative); Ketones Urine Negative (Negative); Leukocyte Esterase Urine Negative (Negative); Nitrite Urine Negative (Negative); Protein Urine Negative (Negative); Urobilinogen Urine 0.2 (0.2-1.0); pH Urine 6.5 (5.0-8.5)
--- NOTE | 2025-04-02 16:25 | ED.GENADULT ---
HPI - General Adult General Chief complaint: Flank Pain Stated complaint: Back pain Time Seen by Provider: 04/02/25 16:13 Source: patient Mode of arrival: ambulatory Limitations: no limitations History of Present Illness HPI narrative: 34-year-old female coming in today complaining of low back pain that started this morning when she woke up. She denies any fevers or chills. The patient has been feeling nauseated for quite some time she believes is because she switched her medications recently to gabapentin for her chronic headaches. No vomiting. She also states that for the last 2 days she has had increased urinary urgency and frequency at night but not during the day. She also has been taking ibuprofen for her headaches recently. Patient is concerned that she has kidney damage because of all this. She also has a history of kidney stones but states that when she had a stone her pain was much more significant. Her pain is a dull ache in the right mid back does not radiate. Nothing really makes it better or worse. Does not really bother her, it is just there. Patient is status post hysterectomy and so denies . Related Data Home Medications ?Medication ?Instructions ?Recorded ?Confirmed escitalopram oxalate 20 mg tablet 25 mg PO DAILY 08/26/23 04/02/25 lisinopril 10 mg tablet 10 mg PO DAILY 08/26/23 04/02/25 propranolol 10 mg tablet 10 mg PO 3XD PRN 08/26/23 04/02/25 gabapentin 100 mg capsule 100 mg PO DAILY 04/02/25 04/02/25 Allergies Allergy/AdvReac Type Severity Reaction Status Date / Time ragweed pollen Allergy Itchy Verified 03/26/25 11:59 throat Cat hair extract Allergy Severe Itchy Uncoded 07/10/22 07:22 throat Review of Systems Status of ROS: Reports: 10 or more systems reviewed and unremarkable except as noted in History and below [facility] Medical History FLAKO I (cervical intraepithelial neoplasia I) ?N87.0 - Mild cervical dysplasia (ICD-10) Generalized anxiety disorder ?F41.1 - Generalized anxiety disorder (ICD-10) Seizure ?R56.9 - Unspecified convulsions (ICD-10) Tobacco use disorder ?F17.200 - Nicotine dependence, unspecified, uncomplicated (ICD-10) Depression with anxiety ?F41.8 - Other specified anxiety disorders (ICD-10) Major depressive disorder, recurrent, mild ?F33.0 - Major depressive disorder, recurrent, mild (ICD-10) Dysmenorrhea, unspecified ?N94.6 - Dysmenorrhea, unspecified (ICD-10) History of gestational hypertension ?Z87.59 - Personal history of other complications of , childbirth and the [place] (ICD-10) Depression with anxiety ?F41.8 - Other specified anxiety disorders (ICD-10) History of seizure disorder ?Z86.69 - Personal history of other diseases of the nervous system and sense organs (ICD-10) Migraine with aura ?G43.109 - Migraine with aura, not intractable, without status migrainosus (ICD-10) Surgical History History of colposcopy ?Z98.890 - Other specified postprocedural states (ICD-10) Family History Father Stroke High blood pressure Osteoporosis Drug dependence High cholesterol Mother High cholesterol High blood pressure Social History Narrative: She lives in [facility] with her . Between the 2 of them, they have 5 children, 1 together. She has 2 children from a previous relationship, as does he. She does not smoke, drink alcohol, or use recreational drugs. She works in [employer], where she does a lot of lifting. Smoking Status: Former smoker What tobacco products do you use: cigarettes Smoking quit date/years: <= 15 years ago Do you use any of these nicotine containing products: None How often do you have a drink containing alcohol: never How often do you have six or more drinks on one occasion: Never AUDIT-C Alcohol total score: 0 Non-prescribed substance use: marijuana (any form) Non-prescribed substance use details: thc some days Caffeine: Yes Are you using contraception or practicing any form of control: Yes service: No Exam Narrative: Exam Narrative: Well-nourished well-developed patient in no acute distress. Alert and oriented. Answers questions appropriately. Mood and affect are appropriate. Thoughts are goal oriented and rational. No tangential or magical thinking noted. Patient speaks in full sentences without needing to catch her breath. HEENT: Normocephalic atraumatic. Pupils are equally round reactive to light. Extraocular muscles are intact. Conjunctivae are moist without any icterus noted. Moist mucous membranes. Cardiovascular: Heart is regular rate and rhythm S1 and S2 are present without any murmurs. Manually recheck her pulse, 96. Lungs: Clear to auscultation bilaterally no wheezes rhonchi or rales are appreciated. Patient takes deep breaths without any discomfort. Abdomen: Soft and nontender nondistended with normal bowel sounds. No CVA tenderness. Back: Patient has normal appearing back without any ecchymosis or rashes. She has no tenderness to palpation over the thoracic or lumbar spine. She has no significant discomfort with palpation of the paraspinal musculature. Const: Vital Signs, click to edit/add: Vital Signs - 24 hr 04/02/25 16:04 Temperature 98.5 F Pulse Rate [Pulse Oximeter] 113 H Respiratory Rate 18 Blood Pressure [Ri ght Upper Arm] 154/91 H Pulse Oximetry 99 Oxygen Delivery Me thod Room Air Course Course ED Course: Pain appears to be musculoskeletal in nature. However patient is concerned about renal function and possible kidney stones therefore we will proceed with CBC, chemistries and UA. CBC normal. UA normal. Chemistries are normal. CRP is normal. Vital Signs Vital signs: Initial Vital Signs Temperature 98.5 F 04/02/25 16:04 Temperature Source Temporal Artery Scan 04/02/25 16:04 Pulse Rate 113 H 04/02/25 16:04 Respiratory Rate 18 04/02/25 16:04 Blood Pressure 154/91 H 04/02/25 16:04 Blood Pressure Mean 112 H 04/02/25 16:04 Blood Pressure Position Sitting 04/02/25 16:04 Pulse Oximetry 99 04/02/25 16:04 Oxygen Delivery Method Room Air 04/02/25 16:04 Vital Signs Temperature 98.5 F 04/02/25 16:04 Pulse Rate 113 H 04/02/25 16:04 Respiratory Rate 18 04/02/25 16:04 Blood Pressure 154/91 H 04/02/25 16:04 Pulse Oximetry 99 04/02/25 16:04 Oxygen Delivery Method Room Air 04/02/25 16:04 Temperature 98.5 F 04/02/25 16:04 Pulse Rate 113 H 04/02/25 16:04 Respiratory Rate 18 04/02/25 16:04 Blood Pressure 154/91 H 04/02/25 16:04 Pulse Oximetry 99 04/02/25 16:04 Oxygen Delivery Method Room Air 04/02/25 16:04 Medical Decision Making MDM Narrative Medical decision making narrative: 34-year-old female with musculoskeletal back pain. No evidence of infection or kidney injury today. Patient reassured. Lab Data Lab results reviewed: Yes I reviewed the patient's lab results Labs: Lab Results 04/02/25 04/02/25 Range/Units 16:14 16:20 WBC 5.52 (4.50-11.00) K/uL RBC 4.56 (4.00-5.20) m/uL Hgb 14.0 (12.0-16.0) gm/dL Hct 42.2 (33.0-51.0) % MCV 93 (80-100) fL MCH 31 (26-34) pg MCHC 33 (32-36) gm/dL RDW Coeff of Anastasiia 13.3 (11.5-15.5) % Plt Count 236 (140-440) K/uL Neut % (Auto) 60.0 (42.0-72.0) % Lymph % (Auto) 31.3 (20-44) % [place] % (Auto) 7.8 (0.0-11.0) % Eos % (Auto) 0.7 (0.0-7.0) % Baso % (Auto) 0.2 (0.0-3.0) % Neut # (Auto) 3.31 (1.7-7.0) K/uL Lymph # (Auto) 1.73 (0.90-2.90) K/uL [place] # (Auto) 0.40 (0.00-0.90) K/UL Eos # (Auto) 0.04 (0.00-0.50) K/uL Baso # (Auto) 0.01 (0.00-0.30) K/uL Abs Immat Gran (auto) 0.00 (0.00-0.30) K/uL Imm/Tot Granulo (auto) 0.0 % Sodium 137 (135-149) mmol/L Potassium 3.9 (3.6-5.1) mmol/L Chloride 106 (96-114) mmol/L Carbon Dioxide 22 (20-32) mmol/L Anion Gap 9 (7-15) mEq/L BUN 15 (5-24) mg/dL Creatinine 0.6 (0.5-1.5) mg/dL Estimated Creat Clear 129.69 Estimated GFR 121 ml/min Glucose 104 (60-115) mg/dL Calcium 9.5 (8.4-10.6) mg/dL C-Reactive Protein < 0.5 L (0.5-1.0) mg/dL Urine Color Yellow (Yellow) Urine Appearance Clear (Clear) Urine pH 6.5 (5.0-8.5) Ur Specific [place] 1.020 (1.000-1.030) Urine Protein Negative (Negative) Urine Glucose (UA) Negative (Negative) Urine Ketones Negative (Negative) Urine Blood Negative (Negative) Urine Nitrite Negative (Negative) Urine Bilirubin Negative (Negative) Urine Urobilinogen 0.2 (0.2-1.0) Ur Leukocyte Esterase Negative (Negative) Urine RBC 0-2 (0-2) Urine WBC 0-2 (0-5) Ur Squamous Epith Cells Moderate A (None-Few) Urine Bacteria None (None) Discharge Plan Discharge Clinical Impression: Back pain Patient Disposition: Home, Self-Care Condition: Stable Additional Instructions: Your workup today did not reveal any evidence of kidney injury or infection. Recommend heating pad to your back as needed - do not apply heat directly to the skin or use for more than 20 minutes at a time. Prescriptions: No Action gabapentin 100 mg capsule 100 mg PO DAILY propranolol 10 mg tablet 10 mg PO 3XD PRN lisinopril 10 mg tablet 10 mg PO DAILY escitalopram oxalate 20 mg tablet 25 mg PO DAILY Follow Up/Referrals: Myriam Linares MD [Primary Care Provider] - Stand Alone Forms: [facility] [employer] Info Instructions
--- OUTSIDE RECORDS SUMMARY | 2025-04-02 16:26 | XMS_ITS | Clinical Summary ---
Author Organization [facility] Address [address] [place] [id number] Care Team Providers Care [employer] Clerk Name Role Phone Myriam Linares MD Primary Care Provider Tyra Merlos WATER TREATMENT TECHNICIAN Unavailable Allergies Active Allergy Reactions Criticality Noted [...] 24 hrs. 50 Tablet 4 9:40 AM CLERK MANAGER 10/12/20 24 Active ibuprofen (ADVIL; MOTRIN) 600 mg tabletIndication s:S/P hysterectomy Take 1 Tablet (600 mg) by mouth every 6 hours if needed for Pain. Maximum of 3200 mg in 24 hours. 40 Tablet 4 9:40 AM CLERK MANAGER 10/12/20 24 Active gabapentin 100 mg capsuleIndicatio [...] I) 11/2017 Overview (09/21/2024): 06/2018 LSIL 09/2018 [place]: Biopsy FLAKO 1, ECC Suggestive of FLAKO 1 09/2019 NIL/HPV+ 09/2020 ASCUS/HPV negative; [place]: Biopsy FLAKO 1 05/2022 NIL/HPV negative 08/2024 [...] PALLIDUM Negative Negative HCG BETA QUANT, mIU/mL [id number] Component Latest Ref Rng & Units [...] Description 03/29/2025 9:35 AM CDT Office Visit [facility] [address] [facility] [place] [address] Myriam Linares MD Derm Problem 03/29/2025 Travel 03/28/2025 1:30 PM CDT Telemedicine [facility] [address] [facility] [place] [phone] Tyra Merlos NP Follow Up; Telehealth 03/27/2025 Travel 03/24/2025 2:25 PM CDT Office Visit [facility] [address] [place] [address] Myriam Linares MD Medication Management (Amitriptyline causing fatigue zombie-like has reduced to 10mg at bedtime, but having more headaches. ) 03/24/2025 Travel 03/20/2025 Travel 02/21/2025 Refill [facility] [address] [place] [phone] Tyra Merlos NP Refill Request (Escitalopram Oxalate) 01/31/2025 1:40 PM CLERK MANAGER Office Visit [facility] [place] [facility] [address] [facility] [place] [address] Miguel Griffiths MD Consult (Chronic daily headache Ref: Dr. Linares /MR Head/Brain 10/19/23, 05/02/19 /CT Head/Brain 06/10/15 ) 01/31/2025 Travel 01/23/2025 Refill [facility] [address] [facility] [place] [address] Myriam Linares MD Refill Request (Amitriptyline 10 [...] AM CDT Legal Sex Female 5:25 AM CLERK MANAGER Gender Identity Female 04/09/2022 10:22 AM CDT [...] Meds Livin g Behre ns Complications:None Delivery Location:[place] 2015 SAB 6w0 d 2017 Term 37w 3d M None Livin g Finnle y Delivery Location:side of ro ad 2020 34w 2d 20h 49m 20h 41m/0h 04m/0h 04m 2.45 kg (5 lb 6.4 oz) F VAGINA L RYAN IV Meds, Epidu ral Livin g 8 9 LINA, BG Lashell Still MD Complications:None Delivery Location:Hospital ( [facility] [address] L[address]D TRIAGE) Last Filed Vital Signs Vital Sign Reading Time Taken Comments Blood Pressure 128/82 03/29/2025 9:51 AM CDT Pulse 84 03/29/2025 9:33 AM CDT Temperature 36.6 C (97.9 F) 11/10/2024 8:16 AM CLERK MANAGER Respiratory Rate 16 10/12/2024 1:15 PM CLERK MANAGER Oxygen Saturation 97% 03/29/2025 9:33 AM CDT Inhaled Oxygen Concentration - - Weight 91.8 kg (202 lb 6.4 oz) 03/24/2025 2:11 P M CDT Height 169.5 cm (5' 6.73) 12/20/2024 9:35 AM CS T Body Mass Index 31.96 12/20/2024 9:35 AM CLERK MANAGER Plan of Treatment Health Maintenance Due Date [...] ANTI HIV 1/2 Routine 02/06/2021 10:51 AM CLERK MANAGER Encounter for supervision of other normal in second trimester (HC) ANTI HCV Routine 02/06/2021 10:51 AM CLERK MANAGER Encounter for supervision of other normal in second trimester (HC) from Last 3 Months or Most Recently Relevant to Health Maintenance Results * ANTI HCV (02/06/2021 10:51 AM CLERK MANAGER) Pathologist [facility] HEPATITIS C ANTIBODY Non-React derek Non-React derek 02/06/2021 6:35 PM CLERK MANAGER [facility] Comment:Antibodies to HCV no t detected; does not exclude the possibility of exposure to HCV. Blood BLOOD SPECIMEN / Unknown Venipuncture / Unknown 02/06/2021 10:51 AM CLERK MANAGER 02/06/2021 10:51 AM CLERK MANAGER us Myriam Linares MD SEND OUTS Final Resul t [facility] [address] [place] [address], [place] * ANTI HIV 1/2 (02/06/2021 10:51 AM CLERK MANAGER) Pathologist [facility] HIV-1/HIV-2 ANTIBODY Non-Reacti ve Non-Reacti ve 02/06/2021 6:28 PM CLERK MANAGER [facility] Comment:HIV-1 p24 and HIV-1/ HIV-2 Ab not detected. Blood BLOOD SPECIMEN / Unknown Venipuncture / Unknown 02/06/2021 10:51 AM CLERK MANAGER 02/06/2021 10:51 AM CLERK MANAGER us Myriam Linares MD SEND OUTS Final Resul t [facility] [address] [place] [address], [place] from Last 3 Months or Most Recently Relevant to Health Maintenance [facility] * Guarantor: JESUS HARRELL DS Account Type Relation to Patient Date of Phone Billing Address Occ Health/Changers Employer [phone] (Home) [address] [place] [address] Advance Directives * Full Code (Latest Code Status on File) Date Activated Date Inactivated Comments 10/12/2024 7:56 AM 10/12/2024 4:03 PM Question Answer Comments Code Status Discussion: Reviewed Preferences * Full Code Date Activated Date Inactivated Comments 07/04/2021 6:36 PM 07/08/2021 3:37 PM Question Answer Comments Code Status Discussion: Not Discussed Care Teams [employer] Clerk Relationship Specialty Start Date End Date Myriam Linares MD [address] [place] [address] PCP - General Family Practice 08/23/20 Tyra Merlos NP [address] [place] [address] Nurse Practitioner - Mental Health 04/09/23
[2025-04-02 16:30] LABS: Basophils Absolute Auto 0.01 K/uL (0.00-0.30); Basophils Percent Auto 0.2 % (0.0-3.0); Eosinophils Absolute Auto 0.04 K/uL (0.00-0.50); Eosinophils Percent Auto 0.7 % (0.0-7.0); Hematocrit 42.2 % (33.0-51.0); Lymphocytes Absolute Auto 1.73 K/uL (0.90-2.90); Lymphocytes Percent Auto 31.3 % (20-44); Mean Corpuscular HGB Conc 33 gm/dL (32-36); Mean Corpuscular Hemoglobin 31 pg (26-34); Mean Corpuscular Volume 93 fL (80-100); Monocytes Percent Auto 7.8 % (0.0-11.0); Neutrophils Absolute Auto 3.31 K/uL (1.7-7.0); Platelet Count* 236 K/uL (140-440); RDW Coefficient of Variation % 13.3 % (11.5-15.5); Red Blood Count 4.56 m/uL (4.00-5.20); White Blood Count* 5.52 K/uL (4.50-11.00)
[2025-04-02 16:32] LABS: Slide Review Reflex No
[2025-04-02 16:32] LABS: RBC Urine 0-2 (0-2); WBC Urine 0-2 (0-5)
[2025-04-02 16:33] LABS: Squamous Epithelial Cell Urine Moderate (None-Few)
[2025-04-02 16:41] LABS: Chloride* 106 mmol/L (96-114); Sodium* 137 mmol/L (135-149)
[2025-04-02 16:42] LABS: Potassium* 3.9 mmol/L (3.6-5.1)
[2025-04-02 16:44] LABS: Blood Urea Nitrogen* 15 mg/dL (5-24); Creatinine* 0.6 mg/dL (0.5-1.5); Est. Creatinine Clearance* 129.69; Estimated Glomerular Filt Rate 121 ml/min
[2025-04-02 16:45] LABS: Anion Gap 9 mEq/L (7-15); Calcium* 9.5 mg/dL (8.4-10.6); Carbon Dioxide* 22 mmol/L (20-32); Glucose* 104 mg/dL (60-115)
[2025-04-02 16:51] LABS: C Reactive Protein* < 0.5 mg/dL (0.5-1.0)
== END 2025-04-02 17:04 | disposition home or self-care (01) ==
PROVIDERS: Emergency Provider Family Medicine; PCP Family Medicine
DX: M54.50 Low back pain, unspecified (principal); R11.0 Nausea; R51.9 Headache, unspecified; Z79.899 Other long term (current) drug therapy
CPT/HCPCS: 36415; 80048; 81001; 85025; 86140; 87086; 99283; 99284